=== PATIENT | male | born 1970 | race Caucasian/White ===

== ENCOUNTER 2016-09-29 08:46 | Emergency (ER) | payer MEDICARE, MEDICAID ==
[2016-09-29 09:01] VITALS: TEMP 97.8
--- NOTE | 2016-09-29 10:14 | ED.PDOC ---
History of Present Illness - General Chief Complaint: Cardiovascular Problem Stated Complaint: recent pacemaker placement, "pounding heart" Time Seen by Provider: 09/29/16 09:09 Source: patient Exam Limitations: no limitations - History of Present Illness Initial Comments: the patient is a 45-year-old male with a history of congestive heart failure and atrial fibrillation presenting to the ER approximately 6 hours after being awoken from sleep due to a feeling of his heart pounding very hard but not fast. He had a pacemaker placed for bradycardia approximately 3 weeks ago at [facility]. He is not having any real chest pain. No shortness of breath. No syncope. No fevers. He has not had this feeling before. He had the pacemaker placed by a Dr. Rios. He has done well since the placement up until now. The pounding is not present when he takes a deep breath but resumes when he exhales. The spasm is noted clinically visibly to his left precordium and upper abdomen with exhalation. It is easily palpated. Timing/Duration: 4-6 hours Severity: moderate Improving Factors: nothing Worsening Factors: nothing Associated Symptoms: denies symptoms Allergies/Adverse Reactions: Allergies Bee Venom Allergy (Verified 09/29/16 09:01) Coconut Oil Allergy (Verified 09/29/16 09:01) Home Medications: Ambulatory Orders Albuterol Sulfate Nebs [Proventil Nebs] 2.5 mg NEB Q6H PRN 02/12/16 Ipratropium/Albuterol [Duoneb] 3 ml NEB RTQID #100 vial 06/02/16 Furosemide [Lasix Tab] 40 mg PO DAILY 07/28/16 Potassium Chloride Microencaps [Klor-Con M20] 20 meq PO DAILY 07/28/16 Warfarin Sodium [Coumadin] 6 mg PO DAILY 07/28/16 Amoxicillin & Pot Clavulanate [Augmentin] 875 mg PO BID 09/29/16 Budes/Formoterol INH 160/4.5 [Symbicort Inhaler 160/4.5] 1 puff INH PRN Diltiazem HCl 90 mg PO BID 09/29/16 Lisinopril [Prinivil] 5 mg PO QAM 09/29/16 Metoprolol Succinate [Metoprolol Succinate ER] 200 mg PO DAILY 09/29/16 Spironolactone 25 mg PO DAILY 09/29/16 Warfarin Sodium [Coumadin] 12 mg PO DAILY 09/29/16 Review of Systems - Review of Systems Constitutional: States: no symptoms reported EENTM: States: no symptoms reported Respiratory: States: no symptoms reported Cardiology: States: palpitations Gastrointestinal/Abdominal: States: no symptoms reported Genitourinary: States: no symptoms reported Musculoskeletal: States: no symptoms reported Skin: States: no symptoms reported Neurological: States: no symptoms reported All other Systems: No Change from Baseline Past Medical History (General) - Patient Medical History Hx Seizures: No Hx Stroke: Yes Hx Dementia: No Hx Asthma: Yes Hx of COPD: Yes Hx Cardiac Disorders: Yes Hx Congestive Heart Failure: Yes Hx Pacemaker: No Hx Hypertension: Yes Hx Thyroid Disease: No Hx Diabetes: Yes Hx Gastroesophageal Reflux: No Hx Renal Disease: No Hx Cancer: No Hx of HIV: No Hx Hepatitis C: No Hx MRSA: No MRSA Source:: Wound Surgical History: appendectomy - Vaccination History Hx Tetanus, Diphtheria Vaccination: No Hx Influenza Vaccination: Yes Hx Pneumococcal Vaccination: Yes - Social History Hx Tobacco Use: No - quit one month ago Hx Chewing Tobacco Use: No Hx Alcohol Use: Yes Hx Substance Use: No Hx Substance Use Treatment: No Hx Depression: No Hx Physical Abuse: No Hx Emotional Abuse: No Hx Suspected Abuse: No - Activities of Daily Living Hospice Agency (if applicable):: None - Female History Patient is a Female of Child Bearing Age (10 -59 yrs old): No Patient : No Family Medical History - Family History Mother Family History: Unknown Physical Exam - Physical Exam General Appearance: Alert, No apparent distress Eye Exam: bilateral normal Ears, Nose, Throat: normal ENT inspection, normal pharynx Neck: non-tender, full range of motion, supple Respiratory: chest non-tender, lungs clear, normal breath sounds, no respiratory distress, no accessory muscle use, other - chest wall contraction is noted with history of present illness Cardiovascular/Chest: normal peripheral pulses, no edema, other - regular rate Peripheral Pulses: radial,right: 2+, radial,left: 2+, dorsalis pedis,right: 2+, dorsalis pedis,left: 2+ Gastrointestinal/Abdominal: non tender, soft Rectal Exam: deferred Back Exam: normal inspection, no CVA tenderness Extremity: normal range of motion, non-tender, normal inspection, no pedal edema , normal capillary refill Neurologic: alert, normal mood/affect, oriented x 3 Skin Exam: normal color Comments: Vital Signs - 24 hr 09/29/16 09/29/16 08:52 09:02 Temperature 97.8 F Pulse Rate [ 80 pulse ox] Respiratory 20 20 Rate Blood Pressure 156/90 [Left Arm] O2 Sat by Pulse 92 L Oximetry Progress - Progress Progress: 09/29/16 10:16 the patient is a 45-year-old male presenting with symptom of thumping in his chest starting at 2:30 AM abruptly. This is not chest pain or shortness of breath. Symptoms have not changed since onset. Due to the correlation with breathing as well as the placement of the leads on the x-ray I do believe that one of his ventricular leads has likely come into contact with the diaphragm likely upon exhaling only, at this time. I did attempt to contact his gas technician office, Dr Rios, but have not heard back from them yet at this time. The patient will be transferred back [facility] where he had the pacemaker placed for further evaluation and intervention as deemed necessary. He does appear stable at this time. Transfer for specialist care. - Results/Orders Results/Orders: Vital Signs - 24 hr 09/29/16 09/29/16 08:52 09:02 Temperature 97.8 F Pulse Rate [ 80 pulse ox] Respiratory 20 20 Rate Blood Pressure 156/90 [Left Arm] O2 Sat by Pulse 92 L Oximetry EKG shows a paced ventricular rhythm at a rate of approximately 80. Laboratory Tests 09/29/16 09:20 WBC 11.0 H RBC 4.67 L Hgb 14.0 Hct 43.5 MCV 93.1 MCH 29.9 MCHC 32.2 L RDW 15.7 H Plt Count 212 MPV 7.7 Absolute Neuts (auto) 7.40 H Absolute Lymphs (auto) 2.50 Absolute Monos (auto) 0.80 Absolute Eos (auto) 0.10 Absolute Basos (auto) 0.10 Neutrophils % 67.6 Lymphocytes % 22.9 Monocytes % 7.2 Eosinophils % 1.1 Basophils % 1.2 PT 15.4 H INR 1.380 PTT (SP) 33.9 Sodium 139 Potassium 4.1 Chloride 103 Carbon Dioxide 28 Anion Gap 12.1 BUN 23 H Creatinine 1.28 BUN/Creatinine Ratio 18.0 Random Glucose 102 Serum Osmolality 281.4 Calcium 8.9 Magnesium 1.9 Total Bilirubin 0.3 AST 22 ALT 23 Alkaline Phosphatase 79 Creatine Kinase 69 CK-MB (CK-2) 2.0 CK-MB (CK-2) % Not Reportable Troponin I < 0.02 B-Natriuretic Peptide 187.0 H Serum Total Protein 7.2 Albumin 3.5 Globulin 3.7 H Albumin/Globulin Ratio 0.9 L Departure - Departure Clinical Impression: Pacemaker complications Qualifiers: Encounter type: initial encounter Qualifier Code: (T82.9XXA) Unspecified complication of cardiac and vascular prosthetic device, implant and graft, initial encounter Disposition: Discharge to Home or Self Half-Way Medications: Ambulatory Orders Albuterol Sulfate Nebs [Proventil Nebs] 2.5 mg NEB Q6H PRN 02/12/16 Ipratropium/Albuterol [Duoneb] 3 ml NEB RTQID #100 vial 06/02/16 Furosemide [Lasix Tab] 40 mg PO DAILY 07/28/16 Potassium Chloride Microencaps [Klor-Con M20] 20 meq PO DAILY 07/28/16 Warfarin Sodium [Coumadin] 6 mg PO DAILY 07/28/16 Amoxicillin & Pot Clavulanate [Augmentin] 875 mg PO BID 09/29/16 Budes/Formoterol INH 160/4.5 [Symbicort Inhaler 160/4.5] 1 puff INH PRN Diltiazem HCl 90 mg PO BID 09/29/16 Lisinopril [Prinivil] 5 mg PO QAM 09/29/16 Metoprolol Succinate [Metoprolol Succinate ER] 200 mg PO DAILY 09/29/16 Spironolactone 25 mg PO DAILY 09/29/16 Warfarin Sodium [Coumadin] 12 mg PO DAILY 09/29/16 Transfer to Outside Facility - Transfer Information Accepting Provider:: dr sellers Accepting Facility: [facility] Reason for Transfer: required specialist not available
--- NOTE | 2016-09-29 10:48 | RAD ---
Study: Frontal and Lateral Views of the Chest. Indication: eval pacemaker leads Comparison: 07/28/2016. Impression: New multi lead cardiac pacemaker. Cardiomegaly with mild central vascular congestion interstitial edema which appears slightly improved compared to the prior. No pleural effusion or pneumothorax. Degenerative changes of the spine noted. Electronically signed by: Wilfred Gunn MD 09/29/2016 10:46
[2016-09-29 10:59] VITALS: BP 122/76; O2SAT 94
== END 2016-09-29 11:10 | disposition home or self-care (01) ==
LOC: ER 08:46
DX: T82.9XXA Unspecified complication of cardiac and vascular prosthetic device, implant and graft, initial encounter (principal); Z91.030 Bee allergy status; Z91.018 Allergy to other foods; I11.0 Hypertensive heart disease with heart failure; I50.9 Heart failure, unspecified; Z86.73 Personal history of transient ischemic attack (TIA), and cerebral infarction without residual deficits; E11.9 Type 2 diabetes mellitus without complications; Z87.891 Personal history of nicotine dependence; Z79.899 Other long term (current) drug therapy; Z79.01 Long term (current) use of anticoagulants

== ENCOUNTER → 2016-10-04 | Outpatient (CLI) | payer MEDICARE, MEDICAID | LOC: NC 13:08 | DX: I48.91 Unspecified atrial fibrillation (principal) ==

== ENCOUNTER 2016-10-05 15:17 | Emergency (ER) | payer MEDICARE, MEDICAID ==
[2016-10-05 15:36] VITALS: TEMP 98.2
--- NOTE | 2016-10-05 16:27 | ED.PDOC ---
History of Present Illness - General Chief Complaint: Cardiovascular Problem Stated Complaint: arm twitching from pacemaker Time Seen by Provider: 10/05/16 15:34 Source: patient, RN notes reviewed, Vital Signs reviewed Exam Limitations: no limitations - History of Present Illness Initial Comments: Patient reports that starting about lunch time his pacemaker started shocking him with each heart beat. He feels it mostly in his left arm. No chest pain or SOB. Timing/Duration: 1-3 hours Severity: moderate Location: shoulder Activities at Onset: none Prior Chest Pain/Cardiac Workup: other - Pacemaker placed in Aug. Improving Factors: nothing Worsening Factors: nothing Nitro Today/Relief: no nitro taken today Aspirin Treatment Today: no aspirin today Associated Symptoms: denies symptoms Allergies/Adverse Reactions: Allergies Bee Venom Allergy (Verified 09/29/16 09:01) Coconut Oil Allergy (Verified 09/29/16 09:01) Home Medications: Ambulatory Orders Ipratropium/Albuterol [Duoneb] 3 ml NEB RTQID #100 vial 06/02/16 Furosemide [Lasix Tab] 40 mg PO BID 07/28/16 Potassium Chloride Microencaps [Klor-Con M20] 20 meq PO DAILY 07/28/16 Diltiazem HCl 90 mg PO BID 09/29/16 Lisinopril [Prinivil] 5 mg PO QAM 09/29/16 Spironolactone 25 mg PO DAILY 09/29/16 Warfarin Sodium [Coumadin] 6 mg PO DAILY 09/29/16 Digoxin 125 mcg PO DAILY 10/05/16 Metoprolol Tartrate 100 mg PO BID 10/05/16 Warfarin Sodium [Coumadin] 12 mg PO DAILY 10/05/16 Review of Systems - Review of Systems Constitutional: States: no symptoms reported EENTM: States: no symptoms reported Respiratory: States: no symptoms reported Cardiology: States: see HPI Gastrointestinal/Abdominal: States: no symptoms reported Musculoskeletal: States: no symptoms reported Skin: States: no symptoms reported Neurological: States: no symptoms reported Endocrine: States: no symptoms reported Past Medical History (General) - Patient Medical History Hx Seizures: No Hx Stroke: Yes Hx Dementia: No Hx Asthma: Yes Hx of COPD: Yes Hx Cardiac Disorders: Yes Hx Congestive Heart Failure: Yes Hx Pacemaker: Yes Hx Hypertension: Yes Hx Thyroid Disease: No Hx Diabetes: Yes Hx Gastroesophageal Reflux: No Hx Renal Disease: No Hx Cancer: No Hx of HIV: No Hx Hepatitis C: No Hx MRSA: No MRSA Source:: Wound - Vaccination History Hx Tetanus, Diphtheria Vaccination: No Hx Influenza Vaccination: Yes Hx Pneumococcal Vaccination: Yes - Social History Hx Tobacco Use: No - quit one month ago Hx Chewing Tobacco Use: No Hx Alcohol Use: Yes Hx Substance Use: No Hx Substance Use Treatment: No Hx Depression: No Hx Physical Abuse: No Hx Emotional Abuse: No Hx Suspected Abuse: No - Female History Patient : No Family Medical History - Family History Mother Family History: Unknown Physical Exam - Physical Exam General Appearance: Alert, No apparent distress, Unkempt Respiratory: lungs clear, normal breath sounds, no respiratory distress, no accessory muscle use Cardiovascular/Chest: regular rate, rhythm, no gallop, no murmur, other - Can see upper body jerk with each heart beat due to the eleectrical shock. Extremity: normal range of motion, non-tender, normal inspection Neurologic: no motor/sensory deficits, alert, normal mood/affect, oriented x 3 Skin Exam: normal color, warm/dry Progress - Progress Progress: 10/05/16 16:[address] Rios's MA who will text him and have him call me back. 10/05/16 16:[address] Hollingsworth. He checked the patients pacemaker on the computer and feels he is not being shocked but that the amplitude of each shock is too strong. He is going to see if a [employer] rep can come here to the ER and down regulate the pacemaker. Advised patient. Will wait for [employer]. 10/05/16 17:45 Spoke with [employer] rep - Tani Barnett, he should be here in approx 2 hours. 10/05/16 20:43 [employer] medical sales representative has arrived and is with patient. 10/05/16 21:[address] Aquino one of his leads of his pacemaker has become dislodged. HE needs to be transfered to [facility]. Admit to hospitalist, to inpatient room for another procedure on his pacemaker. - EKG/XRAY/CT EKG: Unchanged from 09/29/16 Comments: Ventricular pace maker Departure - Departure Clinical Impression: Pacemaker complications Disposition: Transfer to Hospital Condition: Fair Departure Forms: ED Discharge - Pt. Copy, Patient Portal Self Enrollment Home Medications: Ambulatory Orders Ipratropium/Albuterol [Duoneb] 3 ml NEB RTQID #100 vial 06/02/16 Furosemide [Lasix Tab] 40 mg PO BID 07/28/16 Potassium Chloride Microencaps [Klor-Con M20] 20 meq PO DAILY 07/28/16 Diltiazem HCl 90 mg PO BID 09/29/16 Lisinopril [Prinivil] 5 mg PO QAM 09/29/16 Spironolactone 25 mg PO DAILY 09/29/16 Warfarin Sodium [Coumadin] 6 mg PO DAILY 09/29/16 Digoxin 125 mcg PO DAILY 10/05/16 Metoprolol Tartrate 100 mg PO BID 10/05/16 Warfarin Sodium [Coumadin] 12 mg PO DAILY 10/05/16 Transfer to Outside Facility - Transfer Information Accepting Provider:: Dr. Cruz Accepting Facility: [place] Reason for Transfer: required specialist not available - Needs procedure to replace dislodged L ventricular lead
[2016-10-05 21:59] VITALS: BP 148/88; O2SAT 92
== END 2016-10-05 21:35 | disposition short-term general hospital (02) ==
LOC: ER 15:17
DX: T82.199A Other mechanical complication of unspecified cardiac device, initial encounter (principal); J44.9 Chronic obstructive pulmonary disease, unspecified; I11.0 Hypertensive heart disease with heart failure; I50.9 Heart failure, unspecified; E11.9 Type 2 diabetes mellitus without complications; Z86.73 Personal history of transient ischemic attack (TIA), and cerebral infarction without residual deficits; Z79.01 Long term (current) use of anticoagulants; Z79.899 Other long term (current) drug therapy; Z87.891 Personal history of nicotine dependence; Z91.030 Bee allergy status; Z91.018 Allergy to other foods

== ENCOUNTER → 2016-10-15 | Outpatient (CLI) | payer MEDICARE, MEDICAID | LOC: NC 18:13 | DX: I48.91 Unspecified atrial fibrillation (principal) ==

== ENCOUNTER → 2016-11-24 | Outpatient (CLI) | payer MEDICARE, MEDICAID | END | disposition home or self-care (01) | LOC: YCFC.O 14:32 | DX: I48.91 Unspecified atrial fibrillation (principal); E11.22 Type 2 diabetes mellitus with diabetic chronic kidney disease ==

== ENCOUNTER → 2016-12-08 | Outpatient (CLI) | payer MEDICARE, MEDICAID | END | disposition home or self-care (01) | LOC: NC 17:01 | DX: I48.91 Unspecified atrial fibrillation (principal) ==

== ENCOUNTER → 2016-12-15 | Outpatient (CLI) | payer MEDICARE, MEDICAID | END | disposition home or self-care (01) | LOC: NC 11:32 | DX: I48.91 Unspecified atrial fibrillation (principal) ==

== ENCOUNTER 2016-12-18 20:28 | Emergency (ER) | payer MEDICARE, MEDICAID ==
--- NOTE | 2016-12-18 21:53 | RAD ---
Procedure: XR ABDOMEN 2 VIEWS SUPINE ERECT Exam Date: 12/18/2016 Ordering Provider: Shadia Bowens Clinical Indication: left upper quadrant pain Comparison: 09/29/2016 Findings: Upright chest x-ray: Left subclavian AICD with leads in appropriate position. Cardiac size is enlarged. Pulmonary vasculature is normal. Mediastinal and aortic contour normal. There is no consolidation or effusion. Flat and upright abdomen: There is no small or large bowel distention. There is no pneumoperitoneum. There are no suspicious calcifications. Pelvic phleboliths. There is no acute skeletal abnormality. Impression: 1. No acute radiographic abnormalities in the chest, abdomen or pelvis. 2. Cardiomegaly. Electronically signed by: Everton Obrien MD 12/18/2016 9:52 PM CDT
[2016-12-18] MEDS ORDERED: SIMETHICONE 80 MG TAB PO PRN (22:44)
--- NOTE | 2016-12-18 22:52 | ED.PDOC ---
History of Present Illness - General Chief Complaint: Abdominal Pain Stated Complaint: Epigastric Pain onset 1 hr ago Time Seen by Provider: 12/18/16 20:54 Source: patient, RN notes reviewed, Vital Signs reviewed Exam Limitations: no limitations - History of Present Illness Initial Comments: Patient is a 46 y/o male with a history of afib with a pacemaker. He reports that two hours prior to coming into the ED via EMS, he started having upper abdominal pain. The pain is primarily in the right side and radiates to the back. It is a sharp pain, a 10/10. He vomited three times [employer]. He has had no diarrhea. Timing/Duration: 4-6 hours Severity: severe Improving Factors: nothing Worsening Factors: nothing Associated Symptoms: nausea/vomiting Allergies/Adverse Reactions: Allergies Bee Venom Allergy (Verified 09/29/16 09:01) Coconut Oil Allergy (Verified 09/29/16 09:01) Home Medications: Ambulatory Orders Furosemide [Lasix Tab] 40 mg PO BID 07/28/16 Lisinopril [Prinivil] 10 mg PO QAM 09/29/16 Warfarin Sodium [Coumadin] 10 mg PO DAILY 10/05/16 Aspirin [Aspirin Adult Low Dose] 81 mg PO DAILY 12/18/16 Metoprolol Succinate [Metoprolol Succinate ER] 25 mg PO BID 12/18/16 Promethazine Tab [Phenergan Tablet] 25 mg PO Q8H PRN #10 tab 12/19/16 Simethicone [Phazyme Maximum Strength] 250 mg PO BID PRN #14 cap 12/19/16 Review of Systems - Review of Systems Constitutional: States: no symptoms reported EENTM: States: no symptoms reported Respiratory: States: short of breath Cardiology: States: no symptoms reported Gastrointestinal/Abdominal: States: abdominal pain, nausea, vomiting Genitourinary: States: no symptoms reported Musculoskeletal: States: back pain Skin: States: rash Neurological: States: no symptoms reported Endocrine: States: no symptoms reported Hematologic/Lymphatic: States: no symptoms reported All other Systems: Reviewed and Negative Past Medical History (General) - Patient Medical History Hx Seizures: No Hx Stroke: No Hx Dementia: No Hx Asthma: Yes Hx of COPD: Yes Hx Cardiac Disorders: Yes Hx Congestive Heart Failure: Yes Hx Pacemaker: Yes Hx Hypertension: Yes Hx Thyroid Disease: No Hx Diabetes: No Hx Gastroesophageal Reflux: No Hx Renal Disease: No Hx Cancer: No Hx of HIV: No Hx Hepatitis C: No Hx MRSA: No MRSA Source:: Wound Surgical History: appendectomy, pacemaker - Vaccination History Hx Tetanus, Diphtheria Vaccination: Yes Hx Influenza Vaccination: Yes Hx Pneumococcal Vaccination: Yes Immunizations Up to Date: Yes - Social History Hx Tobacco Use: No - Quit 08/04 Hx Chewing Tobacco Use: No Hx Alcohol Use: No Hx Substance Use: No Hx Substance Use Treatment: No Hx Depression: No Feels Threatened In Home Enviroment: No Feels Threatened In a Relationship: No Hx Physical Abuse: No Hx Emotional Abuse: No Hx Suspected Abuse: No - Female History Patient : No Family Medical History - Family History Mother Family History: Unknown Physical Exam - Physical Exam General Appearance: Alert, Obvious distress, Obese, Unkempt Eye Exam: bilateral normal Ears, Nose, Throat: hearing grossly normal, normal ENT inspection Respiratory: lungs clear, normal breath sounds, no respiratory distress, no accessory muscle use Cardiovascular/Chest: regular rate, rhythm, no edema, no gallop, no murmur Gastrointestinal/Abdominal: normal bowel sounds, soft, tenderness - Primarily in the LUQ, although + Wolfe's. Back Exam: no CVA tenderness Extremity: non-tender, normal inspection Neurologic: alert, normal mood/affect, oriented x 3 Skin Exam: normal color, rash - to left upper arm Progress - Progress Progress: 12/19/16 00:44 Patient's pain decreased significantly after receiving simethicone (to a 6/10). Although I initially considered a CT of the abdomen, because our CT machine was down, I elected to discharge Patient without one, especially since his pain was primarily on the left side and it improved in the ED. I gave him instructions to return if his pain worsened again. I will give him a prescription of simethicone to take if this happens again in the future. - Results/Orders Results/Orders: 12/18/16 12/18/16 12/18/16 20:30 21:29 22:12 Temperature 97.9 F Pulse Rate [L 82 76 81 Arm] Respiratory 22 20 18 Rate Blood Pressure 145/79 126/78 131/92 [L Arm] O2 Sat by Pulse 94 L 96 93 L Oximetry 12/18/16 20:55 EKG Assessment ONCE 12/18/16 21:00 EKG STAT EKG STAT 12/18/16 22:42 Hold Metformin x 48Hrs [id number] Abdomen/Pelvis w/Contrast [CT] Stat 12/18/16 22:44 Simethicone [Mylanta Gas] 160 mg PO PCHS PRN Laboratory Results WBC 12.0 K/mm3 (4.8-10.8) H 12/18/16 20:50 RBC 5.06 M/mm3 (4.70-6.10) 12/18/16 20:50 Hgb 15.4 gm/dL (14.0-18.0) 12/18/16 20:50 Hct 46.9 % (42.0-52.0) 12/18/16 20:50 MCV 92.7 fl (80.0-94.0) 12/18/16 20:50 MCH 30.4 pg (27.0-31.0) 12/18/16 20:50 MCHC 32.8 g/dL (33.0-37.0) L 12/18/16 20:50 RDW 15.5 % (11.5-14.5) H 12/18/16 20:50 Plt Count 244 K/mm3 (130-400) 12/18/16 20:50 MPV 8.7 fl (7.40-10.4) 12/18/16 20:50 Absolute Neuts (auto) 8.70 K/uL (1.8-6.8) H 12/18/16 20:50 Absolute Lymphs (auto) 2.20 K/uL (1.0-3.4) 12/18/16 20:50 Absolute Monos (auto) 0.80 K/uL (0.2-0.8) 12/18/16 20:50 Absolute Eos (auto) 0.10 K/uL (0.0-0.4) 12/18/16 20:50 Absolute Basos (auto) 0.10 K/uL (0.0-0.1) 12/18/16 20:50 Neutrophils % 73.0 % (42.0-78.0) 12/18/16 20:50 Lymphocytes % 18.5 % (20.0-50.0) L 12/18/16 20:50 Monocytes % 6.4 % (2.0-9.0) 12/18/16 20:50 Eosinophils % 1.0 % (1.0-5.0) 12/18/16 20:50 Basophils % 1.1 % (0.0-2.0) 12/18/16 20:50 PT 19.1 SECONDS (9.4-12.5) H 12/18/16 20:50 INR 1.700 12/18/16 20:50 PTT (SP) 38.2 SECONDS (25.1-36.5) H 12/18/16 20:50 Sodium 139 mmol/L (135-145) 12/18/16 20:50 Potassium 3.5 mmol/L (3.6-5.0) L 12/18/16 20:50 Chloride 99 mmol/L (101-111) L 12/18/16 20:50 Carbon Dioxide 31 mmol/L (21-31) 12/18/16 20:50 Anion Gap 12.5 (12-18) 12/18/16 20:50 BUN 24 mg/dL (7-18) H 12/18/16 20:50 Creatinine 1.24 mg/dL (0.6-1.3) 12/18/16 20:50 BUN/Creatinine Ratio 19.4 (10-20) 12/18/16 20:50 Random Glucose 145 mg/dL (70-105) H 12/18/16 20:50 Serum Osmolality 284.2 mOsm/L (275-295) 12/18/16 20:50 Calcium 8.7 mg/dL (8.4-10.2) 12/18/16 20:50 Magnesium 2.0 mg/dL (1.8-2.5) 12/18/16 20:50 Total Bilirubin 0.3 mg/dL (0.2-1.0) 12/18/16 20:50 Direct Bilirubin < 0.1 mg/dL (0-0.2) 12/18/16 20:50 Indirect Bilirubin 0.2 mg/dL (0.2-0.8) 12/18/16 20:50 AST 22 IU/L (10-42) 12/18/16 20:50 ALT 19 IU/L (10-60) 12/18/16 20:50 Alkaline Phosphatase 87 IU/L (42-121) 12/18/16 20:50 Creatine Kinase 129 IU/L (38-174) 12/18/16 20:50 CK-MB (CK-2) 2.4 ng/mL (0.0-4.4) 12/18/16 20:50 CK-MB (CK-2) % Not Reportable 12/18/16 20:50 Troponin I < 0.02 ng/mL (0.01-0.05) 12/18/16 20:50 B-Natriuretic Peptide 148.0 pg/ml (0-100) H 12/18/16 20:50 Serum Total Protein 7.4 gm/dL (6.4-8.2) 12/18/16 20:50 Albumin 3.7 g/dl (3.2-5.5) 12/18/16 20:50 Globulin Cancelled 12/18/16 20:50 Albumin/Globulin Ratio Cancelled 12/18/16 20:50 Lipase 70 U/L (22-51) H 12/18/16 20:50 Urine Color Yellow (Yellow) 12/18/16 22:20 Urine Appearance Clear (Clear) 12/18/16 22:20 Urine pH 5.5 (4.5-7.8) 12/18/16 22:20 Ur Specific [place] 1.020 (1.005-1.030) 12/18/16 22:20 Urine Protein 100 mg/dL H 12/18/16 22:20 Urine Glucose (UA) Negative mg/dL (Negative) 12/18/16 22:20 Urine Ketones Negative mg/dL (NEGATIVE) 12/18/16 22:20 Urine Blood Trace-lysed (Negative) H 12/18/16 22:20 Urine Nitrite Negative 12/18/16 22:20 Urine Bilirubin Negative (NEGATIVE) 12/18/16 22:20 Urine Urobilinogen 0.2 mg/dL (0.2-1.0) 12/18/16 22:20 Ur Leukocyte Esterase Negative (Negative) 12/18/16 22:20 Urine RBC 0-1 /hpf 12/18/16 22:20 Urine WBC 0-1 /hpf 12/18/16 22:20 Ur Epithelial Cells 1-3 /hpf 12/18/16 22:20 Urine Bacteria Rare 12/18/16 22:20 - EKG/XRAY/CT Comments: Electronic ventricular pacemaker, rate 82 bpm XRAY: abdomen Xray Comments: No acute abnormalities, cardiomegaly CT Ordered: No CT Interpretation Call Back: No Departure - Departure Clinical Impression: Abdominal pain Qualifiers: Abdominal location: left upper quadrant Qualifier Code: (R10.12) Left upper quadrant pain Time of Disposition: 00:47 Disposition: Discharge to Home or Self Care Condition: Fair Departure Forms: ED Discharge - Pt. Copy, Patient Portal Self Enrollment Instructions: DI for Abdominal Pain-Adult Diet: bland diet Referrals: Zahra Elmore NP [Primary Care Provider] - 1-2 Weeks Prescriptions: Simethicone [Phazyme Maximum Strength] 250 mg PO BID PRN #14 cap PRN Reason: Gas Or Gas Pain Promethazine Tab [Phenergan Tablet] 25 mg PO Q8H PRN #10 tab PRN Reason: Nausea/Vomiting Home Medications: Ambulatory Orders Furosemide [Lasix Tab] 40 mg PO BID 07/28/16 Lisinopril [Prinivil] 10 mg PO QAM 09/29/16 Warfarin Sodium [Coumadin] 10 mg PO DAILY 10/05/16 Aspirin [Aspirin Adult Low Dose] 81 mg PO DAILY 12/18/16 Metoprolol Succinate [Metoprolol Succinate ER] 25 mg PO BID 12/18/16 Promethazine Tab [Phenergan Tablet] 25 mg PO Q8H PRN #10 tab 12/19/16 Simethicone [Phazyme Maximum Strength] 250 mg PO BID PRN #14 cap 12/19/16 Additional Instructions: [place] diet. Follow up if symptoms return. Stay well-hydrated.
[2016-12-19 01:07] VITALS: BP 151/71; TEMP 98.6; O2SAT 91
== END 2016-12-19 00:50 | disposition home or self-care (01) ==
LOC: ER 20:28
DX: R10.12 Left upper quadrant pain (principal); I11.0 Hypertensive heart disease with heart failure; I50.9 Heart failure, unspecified; J44.9 Chronic obstructive pulmonary disease, unspecified; Z95.0 Presence of cardiac pacemaker; Z91.030 Bee allergy status; Z91.018 Allergy to other foods; Z79.82 Long term (current) use of aspirin; Z79.01 Long term (current) use of anticoagulants; Z87.891 Personal history of nicotine dependence

== ENCOUNTER → 2016-12-22 | Outpatient (CLI) | payer MEDICARE, MEDICAID | END | disposition home or self-care (01) | LOC: YCFC.O 16:46 | DX: I48.91 Unspecified atrial fibrillation (principal) ==

== ENCOUNTER 2016-12-31 11:49 | Emergency (ER) | payer MEDICARE, MEDICAID ==
[2016-12-31 12:08] VITALS: TEMP 98.2
--- NOTE | 2016-12-31 12:50 | ED.PDOC ---
History of Present Illness - General Chief Complaint: General Stated Complaint: elevated blood pressure Time Seen by Provider: 12/31/16 12:49 Source: patient, RN notes reviewed, Vital Signs reviewed Exam Limitations: no limitations - History of Present Illness Initial Comments: Mr. Ananth Gary 46 y/o male with Afib ,chf cad, was sent by his home health nurse to er after a nurse visit today blood pressure was 184/104 but on arrival at er bp taken 140/61 presently denies headache ,chest pain,SOB. Timing/Duration: 1-3 hours Severity: mild Improving Factors: nothing Worsening Factors: nothing Associated Symptoms: denies symptoms Allergies/Adverse Reactions: Allergies Bee Venom Allergy (Verified 09/29/16 09:01) Coconut Oil Allergy (Verified 09/29/16 09:01) Home Medications: Ambulatory Orders Furosemide [Lasix Tab] 40 mg PO BID 07/28/16 Warfarin Sodium [Coumadin] 10 mg PO DAILY 10/05/16 Aspirin [Aspirin Adult Low Dose] 81 mg PO DAILY 12/18/16 Metoprolol Succinate [Metoprolol Succinate ER] 25 mg PO BID 12/18/16 Sacubitril-Valsartan [Entresto 24-26 mg] 1 tab PO BID 12/31/16 Warfarin Sodium 5 mg PO MOWEFR 12/31/16 cloNIDine HCL [Catapres] 0.1 mg PO TID PRN 12/31/16 Review of Systems - Review of Systems Constitutional: States: no symptoms reported EENTM: States: no symptoms reported Respiratory: States: no symptoms reported Cardiology: States: no symptoms reported Gastrointestinal/Abdominal: States: no symptoms reported Genitourinary: States: no symptoms reported Musculoskeletal: States: no symptoms reported Skin: States: no symptoms reported Neurological: States: no symptoms reported Endocrine: States: no symptoms reported Hematologic/Lymphatic: States: no symptoms reported Past Medical History (General) - Patient Medical History Hx Seizures: No Hx Stroke: No Hx Dementia: No Hx Asthma: Yes Hx of COPD: Yes Hx Cardiac Disorders: Yes Hx Congestive Heart Failure: Yes Hx Pacemaker: Yes Hx Hypertension: Yes Hx Thyroid Disease: No Hx Diabetes: No Hx Gastroesophageal Reflux: No Hx Renal Disease: No Hx Cancer: No Hx of HIV: No Hx Hepatitis C: No Hx MRSA: No Hx Other PMH: Yes - padmini on cpap MRSA Source:: Wound Surgical History: appendectomy, pacemaker, other - eye - Vaccination History Hx Tetanus, Diphtheria Vaccination: Yes Hx Influenza Vaccination: Yes - 2016 Hx Pneumococcal Vaccination: Yes - 2016 - Social History Hx Tobacco Use: Yes Hx Chewing Tobacco Use: No Hx Alcohol Use: No Hx Substance Use: No Hx Substance Use Treatment: No Hx Depression: No Hx Physical Abuse: No Hx Emotional Abuse: No Hx Suspected Abuse: No - Activities of Daily Living Patient Lives Alone: No - girlfriend - Female History Patient : No Family Medical History - Family History Mother Family History: No Known Living Status: Still Living Hx Cardiac Disease: Yes - parents Hx Family Cancer: Yes - mom Hx Family;Other: copd Physical Exam - Physical Exam General Appearance: Alert, No apparent distress Eye Exam: bilateral normal Ears, Nose, Throat: hearing grossly normal, normal ENT inspection, normal pharynx Neck: non-tender, full range of motion, supple Respiratory: chest non-tender, lungs clear, normal breath sounds, no respiratory distress, no accessory muscle use Cardiovascular/Chest: normal peripheral pulses, regular rate, rhythm, no edema, no gallop, no JVD, no murmur Peripheral Pulses: radial,right: 2+, radial,left: 2+ Gastrointestinal/Abdominal: normal bowel sounds, non tender, soft, no organomegaly, other - obese Back Exam: normal inspection, no CVA tenderness, no vertebral tenderness Extremity: normal range of motion, non-tender, normal inspection, no pedal edema , no calf tenderness Neurologic: no motor/sensory deficits, alert, normal mood/affect, oriented x 3 Skin Exam: normal color, warm/dry, cyanosis Lymphatic: no adenopathy Departure - Departure Clinical Impression: Hypertension, benign, History of chronic atrial fibrillation, group home current use of anticoagulant therapy Time of Disposition: 13:23 Disposition: Discharge to Home or Self Care Condition: Fair Departure Forms: ED Discharge - Pt. Copy, Patient Portal Self Enrollment Instructions: Why It Is Important to Quit Smoking If You Have Heart Failure, Reasons to Quit Smoking, Tips to Help You Stop Smoking, Serious Ways to Stop Smoking Diet: resume usual diet, low fat, low cholesterol, low salt diet Referrals: Zahra Elmore NP [Primary Care Provider] - 1-2 Weeks Home Medications: Ambulatory Orders Furosemide [Lasix Tab] 40 mg PO BID 07/28/16 Warfarin Sodium [Coumadin] 10 mg PO DAILY 10/05/16 Aspirin [Aspirin Adult Low Dose] 81 mg PO DAILY 12/18/16 Metoprolol Succinate [Metoprolol Succinate ER] 25 mg PO BID 12/18/16 Sacubitril-Valsartan [Entresto 24-26 mg] 1 tab PO BID 12/31/16 Warfarin Sodium 5 mg PO MOWEFR 12/31/16 cloNIDine HCL [Catapres] 0.1 mg PO TID PRN 12/31/16 Additional Instructions: Continue with current medication;Return to emergency room as needed;Follow up with primary md call for appointment
[2016-12-31 13:41] VITALS: BP 130/81; O2SAT 94
== END 2016-12-31 13:30 | disposition home or self-care (01) ==
LOC: ER 11:49
DX: I11.0 Hypertensive heart disease with heart failure (principal); I50.9 Heart failure, unspecified; I48.2 Chronic atrial fibrillation; G47.33 Obstructive sleep apnea (adult) (pediatric); J44.9 Chronic obstructive pulmonary disease, unspecified; Z95.0 Presence of cardiac pacemaker; Z79.899 Other long term (current) drug therapy; Z91.030 Bee allergy status; Z91.018 Allergy to other foods; Z79.82 Long term (current) use of aspirin; Z79.01 Long term (current) use of anticoagulants

== ENCOUNTER → 2016-12-31 | Outpatient (CLI) | payer MEDICARE, MEDICAID | END | disposition home or self-care (01) | LOC: LAB.O 10:59 | PROVIDERS: ATTEND Nurse Practitioner Family | DX: I48.2 Chronic atrial fibrillation (principal); I13.11 Hypertensive heart and chronic kidney disease without heart failure, with stage 5 chronic kidney disease, or end stage renal disease; E11.22 Type 2 diabetes mellitus with diabetic chronic kidney disease ==

== ENCOUNTER → 2017-01-11 | Outpatient (CLI) | payer MEDICARE, MEDICAID | END | disposition home or self-care (01) | LOC: NC 12:05 | PROVIDERS: ATTEND Nurse Practitioner Family | DX: I48.91 Unspecified atrial fibrillation (principal) ==

== ENCOUNTER 2017-01-27 15:05 | Emergency (ER) | payer MEDICARE, MEDICAID ==
[2017-01-27 15:22] VITALS: TEMP 99.1
--- NOTE | 2017-01-27 15:47 | ED.PDOC ---
History of Present Illness - General Chief Complaint: Respiratory Problem Stated Complaint: pt reports elevated BP Time Seen by Provider: 01/27/17 15:39 Source: patient, RN notes reviewed, Vital Signs reviewed Exam Limitations: no limitations - History of Present Illness Initial Comments: Patient came in because his BP at home was elevated to 151/115 despite taking his medications. Also reports the past 2 days he just has not been feeling well. More fatigue and lack of energy. He has been having to use his nebulizer more, 7-8X/day due to tightness in his chest. Timing/Duration: 24 hours Severity: moderate Improving Factors: medication Worsening Factors: nothing Associated Symptoms: malaise Allergies/Adverse Reactions: Allergies Bee Venom Allergy (Verified 01/27/17 15:41) Coconut Oil Allergy (Verified 01/27/17 15:41) Home Medications: Ambulatory Orders Furosemide Tab [Lasix Tab] 40 mg PO BID 07/28/16 Warfarin Sodium [Coumadin] 10 mg PO SUTUTHSA 10/05/16 Metoprolol Succinate [Metoprolol Succinate ER] 25 mg PO BID 12/18/16 Sacubitril-Valsartan [Entresto 24-26 mg] 1 tab PO BID 12/31/16 Warfarin Sodium 5 mg PO MOWEFR 12/31/16 cloNIDine HCL [Catapres] 0.1 mg PO TID PRN 12/31/16 Review of Systems - Review of Systems Constitutional: States: malaise, weakness. Denies: chills, fever EENTM: States: no symptoms reported Respiratory: States: short of breath, other - chest tightness. Denies: cough Cardiology: Denies: chest pain, palpitations, syncope Gastrointestinal/Abdominal: States: no symptoms reported. Denies: abdominal pain, diarrhea, nausea, vomiting Musculoskeletal: States: no symptoms reported Skin: States: no symptoms reported Neurological: States: no symptoms reported. Denies: headache, numbness, paresthesia Endocrine: States: no symptoms reported Past Medical History (General) - Patient Medical History Hx Seizures: No Hx Stroke: No Hx Dementia: No Hx Asthma: Yes Hx of COPD: Yes Hx Cardiac Disorders: Yes Hx Congestive Heart Failure: Yes Hx Pacemaker: Yes Hx Hypertension: Yes Hx Thyroid Disease: No Hx Diabetes: No Hx Gastroesophageal Reflux: No Hx Renal Disease: No Hx Cancer: No Hx of HIV: No Hx Hepatitis C: No Hx MRSA: No MRSA Source:: Wound Surgical History: pacemaker - Vaccination History Hx Tetanus, Diphtheria Vaccination: Yes Hx Influenza Vaccination: Yes - 2016 Hx Pneumococcal Vaccination: Yes - 2016 - Social History Hx Tobacco Use: Yes Hx Chewing Tobacco Use: No Hx Alcohol Use: No Hx Substance Use: No Hx Substance Use Treatment: No Hx Depression: No Hx Physical Abuse: No Hx Emotional Abuse: No Hx Suspected Abuse: No - Female History Patient : No Family Medical History - Family History Mother Family History: No Known Living Status: Still Living Hx Cardiac Disease: Yes - parents Hx Family Cancer: Yes - mom Hx Family;Other: copd Physical Exam - Physical Exam General Appearance: Alert, Comfortable, No apparent distress, Well Developed, Well Groomed, Well Hydrated, Well Nourished Ears, Nose, Throat: hearing grossly normal Neck: non-tender, full range of motion, supple, normal inspection Respiratory: chest non-tender, lungs clear, normal breath sounds, no respiratory distress, no accessory muscle use Cardiovascular/Chest: regular rate, rhythm, no gallop, no murmur Gastrointestinal/Abdominal: normal bowel sounds, non tender, soft Extremity: normal range of motion, non-tender Neurologic: alert, normal mood/affect, oriented x 3 Skin Exam: normal color, warm/dry Progress - Progress Progress: 01/27/17 15:49 ? if chest tightness and malaise is cardiac vs Respiratory. Will initiate cardiac workup. 01/27/17 18:55 Second set of cardiac enzymes are normal. Patients blood pressure has been normal for the time he was here. No symptoms. Will d/c home and have him follow up with his PCP. - Results/Orders Results/Orders: Vital Signs - 24 hr 01/27/17 01/27/17 01/27/17 15:20 16:25 17:30 Temperature 99.1 F Pulse Rate [ 86 82 80 Left Radial] Respiratory 24 24 24 Rate Blood Pressure 136/85 134/78 120/74 [Left Arm] O2 Sat by Pulse 89 L 92 L 93 L Oximetry Laboratory Tests 01/27/17 01/27/17 01/27/17 16:00 16:00 16:00 WBC 9.8 RBC 5.22 Hgb 15.8 Hct 48.2 MCV 92.2 MCH 30.2 MCHC 32.8 L RDW 15.1 H Plt Count 193 MPV 8.3 Absolute Neuts (auto) 7.00 H Absolute Lymphs (auto) 2.20 Absolute Monos (auto) 0.50 Absolute Eos (auto) 0.10 Absolute Basos (auto) 0.10 Neutrophils % 71.4 Lymphocytes % 22.0 Monocytes % 4.7 Eosinophils % 0.9 L Basophils % 1.0 Sodium 144 Potassium 3.4 L Chloride 106 Carbon Dioxide 31 Anion Gap 10.4 L BUN 18 Creatinine 1.30 BUN/Creatinine Ratio 13.8 Random Glucose 134 H Serum Osmolality 290.7 Calcium 8.8 Total Bilirubin 0.6 AST 21 ALT 21 Alkaline Phosphatase 80 Creatine Kinase 166 CK-MB (CK-2) 2.0 CK-MB (CK-2) % Not Reportable Troponin I 0.02 B-Natriuretic Peptide 140.0 H Serum Total Protein 7.3 Albumin 3.5 Globulin 3.8 H Albumin/Globulin Ratio 0.9 L 01/27/17 18:05 WBC RBC Hgb Hct MCV MCH MCHC RDW Plt Count MPV Absolute Neuts (auto) Absolute Lymphs (auto) Absolute Monos (auto) Absolute Eos (auto) Absolute Basos (auto) Neutrophils % Lymphocytes % Monocytes % Eosinophils % Basophils % Sodium Potassium Chloride Carbon Dioxide Anion Gap BUN Creatinine BUN/Creatinine Ratio Random Glucose Serum Osmolality Calcium Total Bilirubin AST ALT Alkaline Phosphatase Creatine Kinase 167 CK-MB (CK-2) 1.9 CK-MB (CK-2) % Not Reportable Troponin I 0.02 B-Natriuretic Peptide Serum Total Protein Albumin Globulin Albumin/Globulin Ratio - EKG/XRAY/CT Comments: Elevtronically paced XRAY: chest - Mild increase in central congestion o/w unchanged from Sep 2016 Departure - Departure Clinical Impression: Hypertension Qualifiers: Hypertension type: essential hypertension Qualified Code(s): I10 - Essential ( primary) hypertension COPD (chronic obstructive pulmonary disease) Qualifiers: COPD type: unspecified COPD Qualified Code(s): J44.9 - Chronic obstructive pulmonary disease, unspecified Time of Disposition: 18:56 Disposition: Discharge to Home or Self Care Condition: Good Departure Forms: ED Discharge - Pt. Copy, Patient Portal Self Enrollment Instructions: High Blood Pressure Diet: low fat, low cholesterol Activity: increase activity as tolerated Referrals: Zahra Elmore NP [Primary Care Provider] - 1-2 Weeks Home Medications: Ambulatory Orders Furosemide Tab [Lasix Tab] 40 mg PO BID 07/28/16 Warfarin Sodium [Coumadin] 10 mg PO SUTUTHSA 10/05/16 Metoprolol Succinate [Metoprolol Succinate ER] 25 mg PO BID 12/18/16 Sacubitril-Valsartan [Entresto 24-26 mg] 1 tab PO BID 12/31/16 Warfarin Sodium 5 mg PO MOWEFR 12/31/16 cloNIDine HCL [Catapres] 0.1 mg PO TID PRN 12/31/16
--- NOTE | 2017-01-27 16:04 | RAD ---
EXAM DESCRIPTION: Chest,2 Views CLINICAL HISTORY: SOB COMPARISON: September 29, 2016 TECHNIQUE: PA/lateral FINDINGS: The lungs are adequately expanded but a prominent central vessels and indistinctness centrally suggesting early changes of pulmonary edema with very slight deterioration from previous study. No large pleural effusions are noted. Stable mild cardiomegaly with indwelling permanent pacer and defibrillator. The smaller lead extends more peripherally towards the ventricular apex than seen on previous examination. Indistinct and prominent central hilar markings and vessels suggesting an element of vascular congestion and early edema The bony spine and chest wall is normal for age in appearance. IMPRESSION: Slight deterioration of the chest with cardiomegaly and central vascular congestion with early changes of pulmonary edema. Slightly more peripheral location of the smaller pacing lead towards the ventricular apex is evident in comparison to prior September study. Electronically signed by: Ananth Clemons MD 01/27/2017 4:04 PM CDT
[2017-01-27 19:03] VITALS: BP 142/81; O2SAT 95
== END 2017-01-27 19:03 | disposition home or self-care (01) ==
LOC: ER 15:05
DX: J44.9 Chronic obstructive pulmonary disease, unspecified (principal); I11.0 Hypertensive heart disease with heart failure; I50.9 Heart failure, unspecified; Z95.0 Presence of cardiac pacemaker; Z91.030 Bee allergy status; Z91.018 Allergy to other foods; Z79.01 Long term (current) use of anticoagulants; Z79.899 Other long term (current) drug therapy; Z87.891 Personal history of nicotine dependence

== ENCOUNTER → 2017-02-24 | Outpatient (CLI) | payer MEDICARE, MEDICAID | END | disposition home or self-care (01) | LOC: NC 14:16 | DX: I48.2 Chronic atrial fibrillation (principal) ==

== ENCOUNTER 2017-03-03 17:24 | Emergency (ER) | payer MEDICARE, MEDICAID ==
--- NOTE | 2017-03-03 18:12 | ED.PDOC ---
History of Present Illness - General Chief Complaint: Respiratory Problem Stated Complaint: weight gain,leg swelling,sob Time Seen by Provider: 03/03/17 18:10 Source: patient Exam Limitations: no limitations - History of Present Illness Initial Comments: Ananth Sawant 46 y/o male with history of cardiomyopathy a.fib,htn chf s/p pacemaker sent to er by his home health nurse with weight gain of 7 pounds and sob today he stated that he had been drinking extra fluids about 2 liters of water a day since he feels thirsty. Timing/Duration: 4-6 hours Severity: moderate Improving Factors: nothing Worsening Factors: nothing Associated Symptoms: shortness of breath Allergies/Adverse Reactions: Allergies Bee Venom Allergy (Verified 01/27/17 15:41) Coconut Oil Allergy (Verified 01/27/17 15:41) Home Medications: Ambulatory Orders Furosemide Tab [Lasix Tab] 40 mg PO BID 07/28/16 Warfarin Sodium [Coumadin] 10 mg PO SUTUTHSA 10/05/16 Metoprolol Succinate [Metoprolol Succinate ER] 25 mg PO BID 12/18/16 Sacubitril-Valsartan [Entresto 24-26 mg] 1 tab PO BID 12/31/16 Warfarin Sodium 5 mg PO MOWEFR 12/31/16 cloNIDine HCL [Catapres] 0.1 mg PO TID PRN 12/31/16 Review of Systems - Review of Systems Constitutional: States: no symptoms reported EENTM: States: no symptoms reported Respiratory: States: no symptoms reported Cardiology: States: see HPI Gastrointestinal/Abdominal: States: no symptoms reported Genitourinary: States: no symptoms reported Musculoskeletal: States: no symptoms reported Skin: States: no symptoms reported Neurological: States: no symptoms reported Endocrine: States: no symptoms reported Hematologic/Lymphatic: States: no symptoms reported Past Medical History (General) - Patient Medical History Hx Seizures: No Hx Stroke: No Hx Dementia: No Hx Asthma: Yes Hx of COPD: Yes Hx Cardiac Disorders: Yes Hx Congestive Heart Failure: Yes Hx Pacemaker: Yes Hx Hypertension: Yes Hx Thyroid Disease: No Hx Diabetes: No Hx Gastroesophageal Reflux: No Hx Renal Disease: No Hx Cancer: No Hx of HIV: No Hx Hepatitis C: No Hx MRSA: No MRSA Source:: Wound Surgical History: pacemaker - Vaccination History Hx Tetanus, Diphtheria Vaccination: Yes Hx Influenza Vaccination: Yes - 2016 Hx Pneumococcal Vaccination: Yes - 2016 - Social History Hx Tobacco Use: Yes Hx Chewing Tobacco Use: No Hx Alcohol Use: No Hx Substance Use: No Hx Substance Use Treatment: No Hx Depression: No Hx Physical Abuse: No Hx Emotional Abuse: No Hx Suspected Abuse: No - Activities of Daily Living Patient Lives Alone: No - family Grooming Ability: Independent Eating (Feeding) Ability: Independent Toileting Ability: Independent - Female History Patient : No Family Medical History - Family History Mother Family History: No Known Living Status: Still Living Hx Cardiac Disease: Yes - parents Hx Family Cancer: Yes - mom Hx Family;Other: copd Physical Exam - Physical Exam General Appearance: Alert, No apparent distress Eye Exam: bilateral normal Ears, Nose, Throat: hearing grossly normal, normal ENT inspection, normal pharynx Neck: non-tender, full range of motion, supple Respiratory: chest non-tender, lungs clear, no respiratory distress, rales - bases Cardiovascular/Chest: normal peripheral pulses, regular rate, rhythm, no gallop , no murmur Peripheral Pulses: radial,right: 2+, radial,left: 2+ Gastrointestinal/Abdominal: normal bowel sounds, non tender, soft, no organomegaly Back Exam: normal inspection, no CVA tenderness Extremity: normal range of motion, no calf tenderness, pedal edema - 2+ Neurologic: no motor/sensory deficits, alert, normal mood/affect, oriented x 3 Skin Exam: normal color, warm/dry Lymphatic: no adenopathy Progress - Progress Progress: 03/03/17 20:33 Vital Signs - 8 hr 03/03/17 03/03/17 17:32 18:40 Temperature 98.1 F Pulse Rate [ 65 68 Apical] Respiratory 24 22 Rate Blood Pressure 148/96 154/88 [Left Arm] O2 Sat by Pulse 93 L 94 L Oximetry Laboratory Tests 03/03/17 03/03/17 19:00 19:00 WBC 9.6 RBC 5.32 Hgb 15.9 Hct 48.5 MCV 91.0 MCH 29.9 MCHC 32.8 L RDW 15.5 H Plt Count 208 MPV 9.0 Absolute Neuts (auto) 6.10 Absolute Lymphs (auto) 2.60 Absolute Monos (auto) 0.70 Absolute Eos (auto) 0.10 Absolute Basos (auto) 0.10 Neutrophils % 63.3 Lymphocytes % 27.6 Monocytes % 7.0 Eosinophils % 1.0 Basophils % 1.1 PT 32.4 H* INR 2.900 PTT (SP) 48.8 H D-Dimer, Quantitative < 200 Sodium 144 Potassium 3.6 Chloride 106 Carbon Dioxide 28 Anion Gap 13.6 BUN 23 H Creatinine 1.41 H BUN/Creatinine Ratio 16.3 Random Glucose 108 H Serum Osmolality 291.1 Calcium 8.5 Magnesium 1.9 Total Bilirubin 0.4 Direct Bilirubin < 0.1 Indirect Bilirubin 0.3 AST 15 ALT 17 Alkaline Phosphatase 78 Creatine Kinase 120 CK-MB (CK-2) 1.6 CK-MB (CK-2) % Not Reportable Troponin I < 0.02 B-Natriuretic Peptide 188.0 H Serum Total Protein 6.9 Albumin 3.5 - EKG/XRAY/CT XRAY: chest - moderate cardiomegaly with increase pulmonary congestion and interstitial infiltrate Departure - Departure Clinical Impression: Diastolic CHF, acute on chronic Dyspnea Qualifiers: Dyspnea type: other forms of dyspnea Qualified Code(s): R06.09 - Other forms of dyspnea Time of Disposition: 20:38 Disposition: Discharge to Home or Self Care Condition: Fair Departure Forms: ED Discharge - Pt. Copy, Patient Portal Self Enrollment Diet: low fat, low cholesterol, low salt diet, other - limit fluid intake 1-1.5 L/day Referrals: Zahra Elmore NP [Primary Care Provider] - 1-2 Weeks Home Medications: Ambulatory Orders Furosemide Tab [Lasix Tab] 40 mg PO BID 07/28/16 Warfarin Sodium [Coumadin] 10 mg PO SUTUTHSA 10/05/16 Metoprolol Succinate [Metoprolol Succinate ER] 25 mg PO BID 12/18/16 Sacubitril-Valsartan [Entresto 24-26 mg] 1 tab PO BID 12/31/16 Warfarin Sodium 5 mg PO MOWEFR 12/31/16 cloNIDine HCL [Catapres] 0.1 mg PO TID PRN 12/31/16 Additional Instructions: Return to emergency room as needed;Continue with current medications
[2017-03-03] MEDS ORDERED: BUMETANIDE 0.25 MG/ML VIAL IV ONE (18:13)
--- NOTE | 2017-03-03 18:35 | RAD ---
EXAM DESCRIPTION: Chest,1 View CLINICAL HISTORY: 46 years Male sob COMPARISON: 01/27/2017 FINDINGS: Cardiac enlargement. Pacemaker in place. There is prominence of the central pulmonary vasculature and increased density in the lower two thirds of the hemithoraces which may reflect developing edema. Definite effusion is not seen in the frontal projection. IMPRESSION: Moderate cardiomegaly with central pulmonary vascular congestion and some increased prominently interstitial density in the lower two thirds of the hemithoraces. Findings may reflect developing pulmonary edema Electronically signed by: Zuleika Zelaya 03/03/2017 6:34 PM CDT
[2017-03-03] MEDS ORDERED: BUMETANIDE 0.25 MG/ML VIAL ONE (20:14)
[2017-03-03 21:04] VITALS: TEMP 98.5; O2SAT 93
[2017-03-03 21:05] VITALS: BP 130/80
== END 2017-03-03 21:05 | disposition home or self-care (01) ==
LOC: ER 17:24
DX: I11.0 Hypertensive heart disease with heart failure (principal); I50.33 Acute on chronic diastolic (congestive) heart failure; J44.9 Chronic obstructive pulmonary disease, unspecified; R06.09 Other forms of dyspnea; Z95.0 Presence of cardiac pacemaker; Z91.030 Bee allergy status; Z91.018 Allergy to other foods; Z79.01 Long term (current) use of anticoagulants; Z79.899 Other long term (current) drug therapy; Z87.891 Personal history of nicotine dependence
CPT/HCPCS: 36415; 71010; 80048; 80076; 82550; 82553; 83880; 84484; 85025; 85379; 85610; 85730; 93005; J3490

== ENCOUNTER → 2017-03-04 | Outpatient (CLI) | payer MEDICARE, MEDICAID | END | disposition home or self-care (01) | LOC: YCFC.O 14:24 | PROVIDERS: ATTEND Nurse Practitioner Family | DX: R06.02 Shortness of breath (principal) ==

== ENCOUNTER 2017-03-24 17:25 | Emergency (ER) | payer MEDICARE, MEDICAID ==
[2017-03-24 17:49] VITALS: BP 152/86; TEMP 98.2; O2SAT 92
[2017-03-24] MEDS ORDERED: IPRATROPIUM/ALBUTEROL 3 ML VIAL NEB ONE ×2 (18:25→21:34)
[2017-03-24] MEDS ORDERED: cefTRIAXone SODIUM 1 GM in SODIUM CHL 0.9% 50ML MIN-BAG+ 50 ML IVPB ONE (18:25)
[2017-03-24] MEDS ORDERED: AZITHROMYCIN IV 500 MG in SODIUM CHLORIDE 0.9% 250ML 250 ML IVPB ONE (18:25)
--- NOTE | 2017-03-24 18:32 | ED.PDOC ---
History of Present Illness - General Source: patient Exam Limitations: no limitations - History of Present Illness Initial Comments: 46 YEAR OLD MALE WITH A H/O CHF, COPD, AND PACEMAKER PRESENTS WITH COMPLAINT OF SOB, COUGH, AND WHEEZING FOR THE PAST WEEK. PT HAD AN OUTPATIENT CXR DONE TODAY THAT WAS ORDERED BY PCP. PT WAS INSTRUCTED TO COME TO ED BY HOME HEALTH AIDE WHO WAS UNABLE TO GET IN TOUCH WITH PCP REGARDING CXR RESULTS. Timing/Duration: 1 week Severity: moderate Possible Cause: chronic episodes, smoke exposure Improving Factors: immobilization, rest Worsening Factors: movement <Keyana Severino H - Last Filed: 03/24/17 18:29> <Eitan Ramirez - Last Filed: 03/24/17 21:47> - General Chief Complaint: Respiratory Problem Stated Complaint: Cough, increasing SOB Time Seen by Provider: 03/24/17 18:25 - History of Present Illness Allergies/Adverse Reactions: Allergies Bee Venom Allergy (Verified 03/24/17 17:39) Coconut Oil Allergy (Verified 03/24/17 17:39) Home Medications: Ambulatory Orders Furosemide Tab [Lasix Tab] 40 mg PO BID 07/28/16 Warfarin Sodium [Coumadin] 10 mg PO SUTUTHSA 10/05/16 Metoprolol Succinate [Metoprolol Succinate ER] 25 mg PO BID 12/18/16 Sacubitril-Valsartan [Entresto 24-26 mg] 1 tab PO BID 12/31/16 Warfarin Sodium 5 mg PO MOWEFR 12/31/16 cloNIDine HCL [Catapres] 0.1 mg PO TID PRN 12/31/16 Azithromycin 500 mg PO DAILY #5 tab 03/24/17 Levofloxacin 500 mg PO DAILY #5 tab 03/24/17 predniSONE [Prednisone] 20 mg PO DAILY #5 tab 03/24/17 Review of Systems - Review of Systems Constitutional: States: chills. Denies: fever Respiratory: States: see HPI, cough, short of breath, wheezing Cardiology: Denies: chest pain, palpitations Gastrointestinal/Abdominal: Denies: abdominal pain, nausea Musculoskeletal: Denies: back pain, joint swelling Skin: Denies: change in color, lesions Neurological: Denies: numbness, paresthesia Endocrine: Denies: excessive sweating, intolerance to cold Hematologic/Lymphatic: Denies: anemia, blood clots <Keyana Severino - Last Filed: 03/24/17 18:29> Past Medical History (General) - Patient Medical History Hx Seizures: No Hx Stroke: No Hx Dementia: No Hx Asthma: Yes Hx of COPD: Yes Hx Cardiac Disorders: Yes - Atrial fib Hx Congestive Heart Failure: Yes Hx Pacemaker: Yes Hx Hypertension: Yes Hx Thyroid Disease: No Hx Diabetes: No Hx Gastroesophageal Reflux: No Hx Renal Disease: No Hx Cancer: No Hx of HIV: No Hx Hepatitis C: No Hx MRSA: No MRSA Source:: Wound Surgical History: pacemaker - Vaccination History Hx Tetanus, Diphtheria Vaccination: Yes Hx Influenza Vaccination: Yes - 2015 Hx Pneumococcal Vaccination: Yes - 2016 - Social History Hx Tobacco Use: Yes Hx Chewing Tobacco Use: No Hx Alcohol Use: No Hx Substance Use: No Hx Substance Use Treatment: No Hx Depression: No Hx Physical Abuse: No Hx Emotional Abuse: No Hx Suspected Abuse: No - Female History Patient : No <Keyana Severino - Last Filed: 03/24/17 18:29> Family Medical History - Family History Mother Family History: No Known Living Status: Still Living Hx Cardiac Disease: Yes - parents Hx Family Cancer: Yes - mom Hx Family;Other: copd <Keyana Severino - Last Filed: 03/24/17 18:29> Physical Exam - Physical Exam General Appearance: Obvious distress, Ill Appearing, Obese Neck: non-tender, full range of motion Respiratory: accessory muscle use, rales, wheezing Cardiovascular/Chest: regular rate, rhythm, no murmur Gastrointestinal/Abdominal: non tender, soft Extremity: non-tender, normal inspection, no pedal edema Neurologic: alert, normal mood/affect, oriented x 3 Skin Exam: normal color, warm/dry <Keyana Severino - Last Filed: 03/24/17 18:29> Progress - Progress Progress: 03/24/17 21:37 the patient is a 46-year-old male with a multitude of long-standing medical problems presenting to the emergency room secondary to respiratory symptoms for the last week. The patient has known congestive heart failure, COPD, recurrent pneumonias, arrhythmia issues with a pacer currently, long- standing anticoagulation, and multiple recurrent abscesses. Laboratory work for the patient is near baseline with the exception of an INR elevated at 5.1. He has been instructed to hold his Coumadin for the next 3 days. He will need a recheck at that time. The patient does appear to be in a moderate COPD exacerbation. It is possible he may have underlying infection in the form of an atypical pneumonia. The patient is going to be dual coverage given his history with azithromycin and Levaquin for a period of 5 days both. the patient did receive a CT scan of the chest without contrast due to concern for right significant pulmonary nodule on the chest x-ray. No such nodule was noted on the CT scan. Only patchy infiltration scattered of the lower lobes. Blood culture has been performed here. Additionally he does need to continue his DuoNeb treatments every 4 hours for now. It would be extremely beneficial if he would stop smoking until at least this exacerbation has resolved. I do not believe that there is a significant CHF component contributing to the shortness of breath at this time. He is not hypoxic. He is not febrile. He is to continue his routine Lasix dose. The patient incidentally was found to have a right anterior chest wall skin abscess. This was aspirated with an 18- gauge needle given his INR. Wound culture is being performed. He will need to monitor this clinically at home. He needs to follow-up with his primary care doctor Tuesday. ER warnings were given for any significant worsening. - Results/Orders Results/Orders: Vital Signs - 8 hr 03/24/17 17:40 Temperature 98.2 F Pulse Rate [ 65 Left Radial] Respiratory 20 Rate Blood Pressure 152/86 [Right Arm] O2 Sat by Pulse 92 L Oximetry 03/24/17 18:30 EKG STAT shows a paced ventricular rhythm at 62 bpm 03/24/17 18:55 BLOOD CULTURE Stat 03/24/17 20:28 WOUND CULTURE Stat 03/24/17 20:30 WOUND CULTURE Routine Laboratory Results - last 24 hr 03/24/17 03/24/17 03/24/17 18:55 18:55 18:55 WBC 11.1 H RBC 5.23 Hgb 15.6 Hct 47.2 MCV 90.3 MCH 29.8 MCHC 33.0 RDW 15.3 H Plt Count 299 MPV 8.2 Absolute Neuts (auto) 7.80 H Absolute Lymphs (auto) 2.30 Absolute Monos (auto) 0.90 H Absolute Eos (auto) 0.10 Absolute Basos (auto) 0.10 Neutrophils % 69.9 Lymphocytes % 20.7 Monocytes % 7.7 Eosinophils % 0.7 L Basophils % 1.0 PT 57.7 H* INR 5.190 H* PTT (SP) 56.9 H pCO2 pO2 HCO3 ABG pH ABG O2 Saturation ABG Base Excess ABG Deoxyhemoglobin Oxyhemoglobin % Carboxyhemoglobin % Methemoglobin % Sat Calc Total Hemoglobin Sodium 143 Potassium 3.7 Chloride 104 Carbon Dioxide 30 Anion Gap 12.7 BUN 21 H Creatinine 1.29 BUN/Creatinine Ratio 16.3 Random Glucose 98 Serum Osmolality 287.9 Lactic Acid Calcium 8.9 Total Bilirubin 0.2 AST 16 ALT 15 Alkaline Phosphatase 77 Creatine Kinase CK-MB (CK-2) CK-MB (CK-2) % Troponin I B-Natriuretic Peptide 369.0 H* Serum Total Protein 7.6 Albumin 3.4 Globulin 4.2 H Albumin/Globulin Ratio 0.8 L 03/24/17 03/24/17 03/24/17 18:55 18:55 19:00 WBC RBC Hgb Hct MCV MCH MCHC RDW Plt Count MPV Absolute Neuts (auto) Absolute Lymphs (auto) Absolute Monos (auto) Absolute Eos (auto) Absolute Basos (auto) Neutrophils % Lymphocytes % Monocytes % Eosinophils % Basophils % PT INR PTT (SP) pCO2 48 pO2 63 L HCO3 29.5 ABG pH 7.410 ABG O2 Saturation 92.7 L ABG Base Excess 4.3 ABG Deoxyhemoglobin 7.1 H Oxyhemoglobin % 89.8 L Carboxyhemoglobin % 2.3 H Methemoglobin % Sat 0.8 Calc Total Hemoglobin 14.8 Sodium Potassium Chloride Carbon Dioxide Anion Gap BUN Creatinine BUN/Creatinine Ratio Random Glucose Serum Osmolality Lactic Acid 0.8 Calcium Total Bilirubin AST ALT Alkaline Phosphatase Creatine Kinase 365 H* CK-MB (CK-2) 3.1 CK-MB (CK-2) % 0.85 Troponin I < 0.02 B-Natriuretic Peptide Serum Total Protein Albumin Globulin Albumin/Globulin Ratio <Eitan Ramirez L - Last Filed: 03/24/17 21:47> Departure <Keyana Severino H - Last Filed: 03/24/17 18:29> - Departure Diet: low salt diet Activity: increase activity as tolerated <Eitan Ramirez - Last Filed: 03/24/17 21:47> - Departure Clinical Impression: COPD with acute exacerbation, Atypical pneumonia, Hypercoagulable state Abscess of skin Qualifiers: Site of cutaneous abscess: trunk Site of cutaneous abscess of trunk: chest wall Qualified Code(s): L02.213 - Cutaneous abscess of chest wall Disposition: Discharge to Home or Self Care Condition: Fair Departure Forms: ED Discharge - Pt. Copy, Patient Portal Self Enrollment Instructions: DI for Chronic Obstructive Pulmonary Disease Referrals: Zahra Elmore, EPIC PROFESSIONAL [Primary Care Provider] - 1-5 Days Prescriptions: Azithromycin 500 mg PO DAILY #5 tab Levofloxacin 500 mg PO DAILY #5 tab predniSONE [Prednisone] 20 mg PO DAILY #5 tab Home Medications: Ambulatory Orders Furosemide Tab [Lasix Tab] 40 mg PO BID 07/28/16 Warfarin Sodium [Coumadin] 10 mg PO SUTUTHSA 10/05/16 Metoprolol Succinate [Metoprolol Succinate ER] 25 mg PO BID 12/18/16 Sacubitril-Valsartan [Entresto 24-26 mg] 1 tab PO BID 12/31/16 Warfarin Sodium 5 mg PO MOWEFR 12/31/16 cloNIDine HCL [Catapres] 0.1 mg PO TID PRN 12/31/16 Azithromycin 500 mg PO DAILY #5 tab 03/24/17 Levofloxacin 500 mg PO DAILY #5 tab 03/24/17 predniSONE [Prednisone] 20 mg PO DAILY #5 tab 03/24/17 Additional Instructions: the patient is a 46-year-old male with a multitude of long-standing medical problems presenting to the emergency room secondary to respiratory symptoms for the last week. The patient has known congestive heart failure, COPD, recurrent pneumonias, arrhythmia issues with a pacer currently, long- standing anticoagulation, and multiple recurrent abscesses. Laboratory work for the patient is near baseline with the exception of an INR elevated at 5.1. He has been instructed to hold his Coumadin for the next 3 days. He will need a recheck at that time. The patient does appear to be in a moderate COPD exacerbation. It is possible he may have underlying infection in the form of an atypical pneumonia. The patient is going to be dual coverage given his history with azithromycin and Levaquin for a period of 5 days both. the patient did receive a CT scan of the chest without contrast due to concern for right significant pulmonary nodule on the chest x-ray. No such nodule was noted on the CT scan. Only patchy infiltration scattered of the lower lobes. Blood culture has been performed here. Additionally he does need to continue his DuoNeb treatments every 4 hours for now. It would be extremely beneficial if he would stop smoking until at least this exacerbation has resolved. I do not believe that there is a significant CHF component contributing to the shortness of breath at this time. He is not hypoxic. He is not febrile. He is to continue his routine Lasix dose. The patient incidentally was found to have a right anterior chest wall skin abscess. This was aspirated with an 18- gauge needle given his INR. Wound culture is being performed. He will need to monitor this clinically at home. He needs to follow-up with his primary care doctor Tuesday. ER warnings were given for any significant worsening.
[2017-03-24] MEDS ORDERED: SODIUM CHL 0.9% 50ML MIN-BAG+ 50 ML IVPB ONE (18:47)
[2017-03-24] MEDS ORDERED: cefTRIAXone SODIUM 1 GM VIAL ONE (18:47)
[2017-03-24] MEDS ORDERED: FUROSEMIDE 40 MG TAB PO ONE (20:27)
--- NOTE | 2017-03-24 21:03 | CT ---
EXAM: Chest w/o Contrast CLINICAL INDICATION: 46-year-old male with abnormal x-ray and nodule. COMPARISON: None. EXAMINATION: CT chest was performed without contrast. This exam was performed according to our departmental dose optimization program which includes use of automated exposure control, adjustment of the mA and/or kV according to patient size and/or use of iterative reconstruction technique. FINDINGS: Chest: Evaluation through the lungs reveals patchy airspace opacification of the bilateral lower lobes may be secondary to developing consolidation or aspirate. No discrete clearly defined pulmonary nodule is identified. There is dependent basilar atelectasis and scarring. The tracheobronchial airways are patent. No significant mediastinal or axillary lymphadenopathy by CT measurement criteria. Heart size within normal limits. No pericardial effusion. Pacemaker device overlies and obscures portions of the the LEFT hemithorax with leads intact at the level of the battery pack, stable in course and termination. Limited evaluation of the upper abdomen shows no acute intra-abdominal abnormalities. The osseous structures are within normal limits. IMPRESSION: 1. Evaluation through the lungs reveals patchy airspace opacification of the bilateral lower lobes may be secondary to developing consolidation or aspirate. Please correlate with patient clinical findings and follow-up for resolution. No discrete clearly defined pulmonary nodule is identified. Electronically signed by: Araceli Mueller MD 03/24/2017 9:01 PM CDT Workstation: [id number]
[2017-03-24] MEDS ORDERED: cefTRIAXone SODIUM 1 GM VIAL IM ONE (21:33)
[2017-03-24] MEDS ORDERED: predniSONE 20 MG TAB PO ONE (21:33)
[2017-03-24] MEDS ORDERED: AZITHROMYCIN 250 MG TAB PO ONE (21:33)
[2017-03-24] MEDS ORDERED: levoFLOXacin 500 MG TAB PO ONE (21:33)
[2017-03-24] MEDS ORDERED: LIDOCAINE 1% 10 ML VIAL INJ ONE (21:44)
== END 2017-03-24 22:16 | disposition home or self-care (01) ==
LOC: ER 17:25
DX: J44.1 Chronic obstructive pulmonary disease with (acute) exacerbation (principal); J18.9 Pneumonia, unspecified organism; D68.59 Other primary thrombophilia; L02.213 Cutaneous abscess of chest wall; I11.0 Hypertensive heart disease with heart failure; I50.9 Heart failure, unspecified; I48.91 Unspecified atrial fibrillation; Z95.0 Presence of cardiac pacemaker; F17.200 Nicotine dependence, unspecified, uncomplicated; Z79.01 Long term (current) use of anticoagulants; Z79.899 Other long term (current) drug therapy; Z91.030 Bee allergy status; Z91.018 Allergy to other foods
CPT/HCPCS: 36415; 36600; 71250; 80053; 82550; 82553; 82803; 82805; 83605; 83880; 84484; 85025; 85610; 85730; 87040; 87070; 93005; 94640; J0696; J7050; J7512; J7620; Q0144

== ENCOUNTER → 2017-03-24 | Outpatient (CLI) | payer MEDICARE, MEDICAID ==
--- NOTE | 2017-03-24 14:54 | RAD ---
EXAM DESCRIPTION: Chest,2 Views CLINICAL HISTORY: 46 years Male, COPD, COUGH, CHRONIC ATRIAL FIBRILLATION COMPARISON: 03/03/2017 IMPRESSION: The heart remains enlarged with central pulmonary vascular congestion. A left chest wall dual lead cardiac device is demonstrated. Interstitial and airspace opacities are again demonstrated in the perihilar and bibasilar regions of both lungs. The findings remain most consistent with CHF with pulmonary edema versus multifocal pneumonia. There is a more focal 2.4 cm nodular opacity in the right lower lung zone which is indeterminate. A follow-up chest radiograph in the next 4 weeks to confirm complete resolution is recommended. A pulmonary nodule/pulmonary neoplasm is the diagnosis of exclusion. No large pleural effusion or pneumothorax. No acute osseous abnormality. Electronically signed by: Efren Cui MD 03/24/2017 2:54 PM CDT
== END | disposition home or self-care (01) ==
LOC: YCFC.O 12:36
PROVIDERS: ATTEND Nurse Practitioner Family
DX: I48.2 Chronic atrial fibrillation (principal); J44.9 Chronic obstructive pulmonary disease, unspecified; R05 Cough

== ENCOUNTER → 2017-03-31 | Outpatient (CLI) | payer MEDICARE, MEDICAID | LOC: NC 15:50 | DX: I48.2 Chronic atrial fibrillation (principal); I13.11 Hypertensive heart and chronic kidney disease without heart failure, with stage 5 chronic kidney disease, or end stage renal disease; I50.23 Acute on chronic systolic (congestive) heart failure ==

== ENCOUNTER → 2017-04-04 | Outpatient (CLI) | payer MEDICARE, MEDICAID | LOC: NC 16:10 | DX: I48.2 Chronic atrial fibrillation (principal) ==

== ENCOUNTER → 2017-04-20 | Outpatient (CLI) | payer MEDICARE, MEDICAID | END | disposition home or self-care (01) | LOC: NC 18:22 | PROVIDERS: ATTEND General Practice | DX: I48.2 Chronic atrial fibrillation (principal) ==

== ENCOUNTER → 2017-04-28 | Outpatient (CLI) | payer MEDICARE | END | disposition home or self-care (01) | LOC: NC 15:24 | PROVIDERS: ATTEND General Practice | DX: I48.2 Chronic atrial fibrillation (principal) ==

== ENCOUNTER → 2017-05-06 | Outpatient (CLI) | payer MEDICARE | END | disposition home or self-care (01) | LOC: NC 12:16 | PROVIDERS: ATTEND General Practice | DX: I48.2 Chronic atrial fibrillation (principal) ==

== ENCOUNTER → 2017-05-13 | Outpatient (CLI) | payer MEDICARE | END | disposition home or self-care (01) | LOC: NC 13:14 | PROVIDERS: ATTEND General Practice | DX: I48.91 Unspecified atrial fibrillation (principal) ==

== ENCOUNTER → 2017-05-24 | Outpatient (CLI) | payer MEDICARE | END | disposition home or self-care (01) | LOC: NC 11:46 | PROVIDERS: ATTEND General Practice | DX: I48.2 Chronic atrial fibrillation (principal) ==

== ENCOUNTER → 2017-06-03 | Outpatient (CLI) | payer MEDICARE, MEDICAID ==
--- NOTE | 2017-06-03 13:46 | RAD ---
EXAM DESCRIPTION: Chest,2 Views CLINICAL HISTORY: ACUTE EXACERBATION OF CHRONIC OBSTRUTIVE AIRWAYS DISEASE COMPARISON: March 24, 2017 Findings/impression: Frontal and lateral views of the chest. Multiple leads left chest pacemaker is stable in position. Cardiac silhouette shows cardiomegaly with mild vascular congestion. Subtle patchy opacities demonstrated within the bilateral lung bases, decreased compared to March 24, 2017. Findings compatible with congestive heart failure with mild pulmonary edema. Pneumonia versus atelectasis cannot be entirely excluded. Previously noted nodular opacity in the right lower lung zone is decreased in size compared to previous, likely resolving pneumonia versus atelectasis. No significant pleural effusion. No pneumothorax. Electronically signed by: Kings Swenson MD 06/03/2017 1:44 PM CDT
== END | disposition home or self-care (01) ==
LOC: LAB.O 12:57
PROVIDERS: ATTEND General Practice
DX: I48.2 Chronic atrial fibrillation (principal); J44.1 Chronic obstructive pulmonary disease with (acute) exacerbation

== ENCOUNTER → 2017-06-16 | Outpatient (CLI) | payer MEDICARE, MEDICAID | END | disposition home or self-care (01) | LOC: NC 18:11 | PROVIDERS: ATTEND General Practice | DX: I48.2 Chronic atrial fibrillation (principal) ==

== ENCOUNTER → 2017-06-23 | Outpatient (CLI) | payer MEDICARE, MEDICAID | END | disposition home or self-care (01) | LOC: NC 16:44 | PROVIDERS: ATTEND General Practice | DX: I48.2 Chronic atrial fibrillation (principal); I50.9 Heart failure, unspecified ==

== ENCOUNTER → 2017-07-21 | Outpatient (CLI) | payer MEDICARE, MEDICAID | END | disposition home or self-care (01) | LOC: NC 11:36 | PROVIDERS: ATTEND General Practice | DX: I50.9 Heart failure, unspecified (principal) ==

== ENCOUNTER → 2017-07-26 | Outpatient (CLI) | payer MEDICARE, MEDICAID | END | disposition home or self-care (01) | LOC: NC 15:00 | PROVIDERS: ATTEND General Practice | DX: I13.0 Hypertensive heart and chronic kidney disease with heart failure and stage 1 through stage 4 chronic kidney disease, or unspecified chronic kidney disease (principal); J44.9 Chronic obstructive pulmonary disease, unspecified; I50.9 Heart failure, unspecified; I48.2 Chronic atrial fibrillation ==

== ENCOUNTER → 2017-08-09 | Outpatient (CLI) | payer MEDICARE, MEDICAID | END | disposition home or self-care (01) | LOC: NC 13:24 | PROVIDERS: ATTEND General Practice | DX: I49.1 Atrial premature depolarization (principal); I50.40 Unspecified combined systolic (congestive) and diastolic (congestive) heart failure ==

== ENCOUNTER → 2017-08-19 | Outpatient (CLI) | payer MEDICARE, MEDICAID | END | disposition home or self-care (01) | LOC: NC 13:55 | PROVIDERS: ATTEND General Practice | DX: I48.91 Unspecified atrial fibrillation (principal) ==

== ENCOUNTER → 2017-08-22 | Outpatient (CLI) | payer MEDICARE, MEDICAID | END | disposition home or self-care (01) | LOC: NC 10:23 | PROVIDERS: ATTEND General Practice | DX: I48.91 Unspecified atrial fibrillation (principal) ==

== ENCOUNTER → 2017-09-01 | Outpatient (CLI) | payer MEDICARE, MEDICAID | END | disposition home or self-care (01) | LOC: NC 15:36 | PROVIDERS: ATTEND General Practice | DX: I48.91 Unspecified atrial fibrillation (principal) ==

== ENCOUNTER → 2017-09-22 | Outpatient (CLI) | payer MEDICARE, MEDICAID | END | disposition home or self-care (01) | LOC: NC 13:08 | PROVIDERS: ATTEND General Practice | DX: I12.9 Hypertensive chronic kidney disease with stage 1 through stage 4 chronic kidney disease, or unspecified chronic kidney disease (principal); N18.9 Chronic kidney disease, unspecified; I48.2 Chronic atrial fibrillation ==

== ENCOUNTER → 2017-09-29 | Outpatient (CLI) | payer MEDICARE, MEDICAID | END | disposition home or self-care (01) | LOC: NC 17:05 | PROVIDERS: ATTEND General Practice | DX: I48.2 Chronic atrial fibrillation (principal) ==

== ENCOUNTER → 2017-10-20 | Outpatient (CLI) | payer MEDICARE, MEDICAID | LOC: NC 16:54 | PROVIDERS: ATTEND General Practice | DX: I48.2 Chronic atrial fibrillation (principal) ==

== ENCOUNTER → 2017-11-11 | Outpatient (CLI) | payer MEDICARE, MEDICAID | LOC: NC 12:29 | PROVIDERS: ATTEND General Practice | DX: I48.2 Chronic atrial fibrillation (principal) ==

== ENCOUNTER → 2017-11-24 | Outpatient (CLI) | payer MEDICARE, MEDICAID | LOC: NC 12:11 | PROVIDERS: ATTEND General Practice | DX: I48.2 Chronic atrial fibrillation (principal) ==

== ENCOUNTER → 2017-11-30 | Outpatient (CLI) | payer MEDICARE, MEDICAID ==
--- NOTE | 2017-11-30 13:58 | US ---
EXAM DESCRIPTION: Abdomen,Limited: ULTRASOUND. CLINICAL HISTORY: UMBILICAL HERNIA WITHOUT OBSTRUCTION OR GANGRENE. Pain near umbilicus after moving fracture. COMPARISON: None Available. TECHNIQUE: Transcutaneous scanning: Two-dimensional and Doppler modes. FINDINGS: No defects noted in the abdominal wall. No peristalsis of bowel in the abdominal wall or subcutaneous adipose tissue. IMPRESSION: No defects in the abdominal wall abutting the umbilicus. No herniated tissue visualized. Electronically signed by: Elie Chavira MD 11/30/2017 1:57 PM CDT
== END ==
LOC: US 09:30
PROVIDERS: ATTEND Nurse Practitioner Family
DX: K42.9 Umbilical hernia without obstruction or gangrene (principal)

== ENCOUNTER 2017-12-11 14:26 | Inpatient (IN) | payer MEDICARE, MEDICAID ==
[2017-12-11] MEDS ORDERED: fentaNYL CITRATE INJ 50 MCG/ML AMP IV ONE ×2 (14:46→20:03)
[2017-12-11] MEDS ORDERED: PROMETHAZINE HCL INJ 12.5 MG in SODIUM CHLORIDE 0.9% 50ML 50 ML IVPB ONE (14:46)
--- NOTE | 2017-12-11 14:57 | ED.PDOC ---
History of Present Illness - General Chief Complaint: Abdominal Pain Stated Complaint: hernia pain Time Seen by Provider: 12/11/17 14:29 Source: patient Exam Limitations: no limitations Additional Information: C/O ABDOMINAL PAIN. HAS HERNIA AND OUTPT CT SCHEDULED FOR TOMORROW. C/O INCREASING ABDOMINAL PAIN TODAY WITH BLOOD IN STOOL WHICH STARTED TODAY. CAME TO ER FOR EVALUATION. - History of Present Illness Severity: moderate Improving Factors: nothing Worsening Factors: nothing Allergies/Adverse Reactions: Allergies Bee Venom Allergy (Verified 03/24/17 17:39) Coconut Oil Allergy (Verified 03/24/17 17:39) Home Medications: Ambulatory Orders Furosemide Tab [Lasix Tab] 40 mg PO BID 07/28/16 Metoprolol Succinate [Metoprolol Succinate ER] 50 mg PO DAILY 12/18/16 Amlodipine Besylate 5 mg PO DAILY 12/11/17 Bupropion HCl [Wellbutrin Sr] 150 mg PO BID 12/11/17 Metolazone 5 mg PO DAILY PRN 12/11/17 Sacubitril-Valsartan [Entresto 97-103 mg] 1 tab PO BID 12/11/17 Warfarin Sodium 7.5 mg PO BEDTIME 12/11/17 Review of Systems - Review of Systems Constitutional: Denies: chills, fever EENTM: States: no symptoms reported Respiratory: Denies: cough, short of breath, wheezing Cardiology: Denies: chest pain, palpitations Gastrointestinal/Abdominal: States: abdominal pain, other - BRBPR. . Denies: constipation, diarrhea, nausea, vomiting Genitourinary: Denies: dysuria, hematuria Musculoskeletal: States: no symptoms reported Skin: States: no symptoms reported Neurological: States: no symptoms reported Endocrine: States: no symptoms reported Hematologic/Lymphatic: States: no symptoms reported Past Medical History (General) - Patient Medical History Hx Seizures: No Hx Stroke: No Hx Dementia: No Hx Asthma: Yes Hx of COPD: Yes Hx Cardiac Disorders: Yes - Atrial fib Hx Congestive Heart Failure: Yes Hx Pacemaker: Yes Hx Hypertension: Yes Hx Thyroid Disease: No Hx Diabetes: No Hx Gastroesophageal Reflux: No Hx Renal Disease: No Hx Cancer: No Hx of HIV: No Hx Hepatitis C: No Hx MRSA: No MRSA Source:: Wound Surgical History: appendectomy, pacemaker - Vaccination History Hx Tetanus, Diphtheria Vaccination: Yes Hx Influenza Vaccination: Yes Hx Pneumococcal Vaccination: Yes - Social History Hx Tobacco Use: Yes Hx Chewing Tobacco Use: No Hx Alcohol Use: No Hx Substance Use: No Hx Substance Use Treatment: No Hx Depression: No Hx Physical Abuse: No Hx Emotional Abuse: No Hx Suspected Abuse: No - Female History Patient : No Family Medical History - Family History Mother Family History: No Known Living Status: Still Living Hx Cardiac Disease: Yes - parents Hx Family Cancer: Yes - mom Hx Family;Other: copd Physical Exam - Physical Exam General Appearance: Obese - MOD DISTRESS DTP. Eye Exam: bilateral normal Ears, Nose, Throat: hearing grossly normal, normal ENT inspection Neck: non-tender, supple Respiratory: lungs clear, normal breath sounds Cardiovascular/Chest: regular rate, rhythm, no murmur Gastrointestinal/Abdominal: other - OBESE, MOD DIFFUSE TTP, NO G/R/HSM/MASSES Rectal Exam: normal rectal tone, other - NO MASSES, PROSTATE NL, GROSS BLOOD ON EXAM Back Exam: normal inspection, no CVA tenderness Extremity: normal range of motion, other - 1+ PITTING EDEMA Neurologic: alert, normal mood/affect Skin Exam: rash - CANDIDAL ABDOMINAL PANNICULUS Lymphatic: no adenopathy Progress - Progress Progress: 12/11/17 18:27 D/W DR MONZON AND JAMIACA WILL ADMIT. - EKG/XRAY/CT CT: NON DIAGNOSTIC THICKENING DESCENDING COLON. POSSIBLE COLITIS Departure - Departure Clinical Impression: Hematochezia, Warfarin-induced coagulopathy Abdominal pain Qualifiers: Abdominal location: generalized Qualified Code(s): R10.84 - Generalized abdominal pain Time of Disposition: 18:30 Disposition: Admit Patient Condition: Fair Departure Forms: ED Discharge - Pt. Copy, Patient Portal Self Enrollment Instructions: DI for Abdominal Pain-Adult Referrals: Sandy Maher NP [Primary Care Provider] - 1-2 Weeks Home Medications: Ambulatory Orders Furosemide Tab [Lasix Tab] 40 mg PO BID 07/28/16 Metoprolol Succinate [Metoprolol Succinate ER] 50 mg PO DAILY 12/18/16 Amlodipine Besylate 5 mg PO DAILY 12/11/17 Bupropion HCl [Wellbutrin Sr] 150 mg PO BID 12/11/17 Metolazone 5 mg PO DAILY PRN 12/11/17 Sacubitril-Valsartan [Entresto 97-103 mg] 1 tab PO BID 12/11/17 Warfarin Sodium 7.5 mg PO BEDTIME 12/11/17
[2017-12-11] MEDS ORDERED: PROMETHAZINE HCL INJ 25 MG/ML VIAL ONE (15:00)
[2017-12-11] MEDS ORDERED: SODIUM CHLORIDE 0.9% 50ML 50 ML ONE (15:01)
[2017-12-11] MEDS ORDERED: KCL 20 MEQ/NS 1,000 ML IVS PRN (15:41)
--- NOTE | 2017-12-11 16:22 | CT ---
EXAM DESCRIPTION: Abdomen/Pelvis w/o Contrast CLINICAL HISTORY: 47 years Male ABDOMINAL PAIN, BLOOD IN STOOL COMPARISON: None. TECHNIQUE: Contiguous axial images obtained through the abdomen and pelvis without IV contrast. Reformatted images obtained. This exam was performed according to our department optimization program which includes automated exposure control, adjustment of the mA and/or kv according to patient size and/or use of iterative reconstruction technique. FINDINGS: The lung bases are clear. Cardiac pacemaker leads are visualized. The liver appears unremarkable. The spleen and pancreas appear unremarkable. No adrenal masses. The kidneys appear unremarkable. No hydronephrosis or definite ureteral calculi. The gallbladder is visualized. Mild atherosclerotic calcifications. No aneurysmal dilatation of the aorta. Questionable wall thickening in the descending colon and in portions of the sigmoid colon versus incomplete distention. Clinical correlation recommended to exclude the possibility of colitis. No bowel obstruction. The appendix is not visualized. No free pelvic fluid. Fat-containing left inguinal hernia. IMPRESSION: Questionable wall thickening in the descending colon and in portions of the sigmoid colon versus incomplete distention. Clinical correlation recommended to exclude the possibility of colitis. Electronically signed by: Milo Zelaya MD 12/11/2017 4:19 PM CDT
--- NOTE | 2017-12-11 20:27 | HP ---
SUPERVISING PHYSICIAN: Ananth Ramirez MD CHIEF COMPLAINT: Abdominal pain. HISTORY OF PRESENT ILLNESS: Mr. Lara is a 47-year-old, male patient that presented to the Emergency Department today complaining of right sided abdominal pain. He does have a hernia which has been followed in the outpatient setting and was scheduled to have a CT in the morning due to increasing abdominal pain. He notes that today he had gotten up to eat breakfast and started eating breakfast and had some nausea with some emesis and then had a bowel movement and noticed that there was blood in his stools and actually two separate episodes prior to coming to the Emergency Room. He notes that the pain is primarily on the right side. He also reports that he had ongoing chronic diarrhea for well over 6 months or greater. In fact, he notes that last September he was at the hospital in [place] for a pacemaker implantation, developed an infection with some diarrhea and was found to have Clostridium difficile infection. At that time, he was treated in September with oral vancomycin. He denies any recent antibiotic usage. He does have a history of atrial fibrillation and is on chronic Coumadin therapy and was concerned about the blood and increasing abdominal pain which prompted him to present for further evaluation to the Emergency Department. His laboratory studies in the Emergency Room showed hemoglobin 16.5 with hematocrit 40.7 and normal white count with no left shift. Coagulation studies showed INR 4.28. Chemistries showed he was clinically dehydrated with BUN 45, creatinine 2.03. Review of his past medical records and laboratory studies showed that his creatinine baseline is around 1.2 to 1.3. He denied any chest pains, but does have chronic shortness of breath and exertional dyspnea related to his body habitus and chronic obstructive pulmonary disease and he wears oxygen on a p.r.n. basis. He is a current smoker approximately one pack a day. His last colonoscopy was well over 2 years ago apparently at [facility] with the patient being told there were no abnormality findings. His stool occult blood today was positive in the Emergency Room. Urinalysis was pending at time of admission. His vital signs showed he was hemodynamically stable with a pulse 61 , blood pressure 137/59, afebrile at 96.8 with O2 saturation 90% on room air and increasing to 95% on nasal cannula at [address] of the abdomen was completed prior to admission and per radiologic interpretation showed note of question of wall thickening of the descending colon and portions of the sigmoid colon versus incomplete distention. Given the acute onset of abdominal pain with history of hernia and findings on CT concerning for colitis involving the descending and sigmoid colon, the patient is now going to be admitted to the Medical/Surgical Floor for ongoing further treatment and evaluation. PAST MEDICAL HISTORY: 1. Chronic atrial fibrillation on Coumadin therapy. 2. History of chronic renal insufficiency with baseline creatinine around 1.2 to 1.3. 3. History of hypertension. 4. Chronic obstructive pulmonary disease with a longstanding history of tobacco abuse. 5. Morbid obesity. 6. Umbilical hernia, being followed by Dr. Pickens. PAST SURGICAL HISTORY: 1. Appendectomy. 2. Eye surgery. 3. Pacemaker implantation in 2017. CURRENT MEDICATIONS: 1. Bactroban ointment topically as needed b.i.d. 2. Entresto 97-103 1 tablet b.i.d. 3. Wellbutrin 150 mg b.i.d. 4. Amlodipine 5 mg daily. 5. Metolazone 5 mg daily as needed. 6. Lasix 40 mg b.i.d. 7. Metoprolol succinate 50 mg daily. 8. Warfarin 7.5 mg at bedtime. ALLERGIES: NO DRUG ALLERGIES LISTED. The patient lists allergies to bee venom and coconut oil. FAMILY HISTORY: Positive for cancers, hypertension, obesity, diabetes. SOCIAL HISTORY: The patient is disabled and lives in [place], [place]. He had previously worked for [email or web address] for 19 years before becoming disabled. He notes he has smoked for numerous years and currently smokes approximately one pack a day. He denies any illicit drug or alcohol usage. REVIEW OF SYSTEMS: CONSTITUTIONAL: Denies any fevers, chills. HEENT: Denies nasal congestion, sore throat, earaches. RESPIRATORY: Denies any cough, but notes chronic shortness of breath especially with exertional effort, but denies any wheezing. CARDIOVASCULAR: Denies chest pain, palpitations or syncopal episodes. GASTROINTESTINAL: Abdominal pain as noted in history of present illness. He denies any constipation, but has noted over the last several months chronic diarrhea and some nausea and vomiting today with a history of previous C. difficile infection back in September. GENITOURINARY: Denies dysuria, hematuria or other urinary symptoms. NEUROLOGIC: Denies ataxia, seizures or other neurologic deficits. PHYSICAL EXAMINATION: VITAL SIGNS: Temperature 96.8. Pulse 61. Blood pressure 137/59. Respirations 20. Initially satting 91% on room air, improving to 95% on nasal cannula at 2 liters. GENERAL: On examination on the Medical/Surgical Floor,I the patient is notably unkept and morbidly obese, but appears to be comfortable and in nodular. HEENT: Tympanic membranes clear bilaterally. Oropharynx is pink with dry mucous membranes, no lesions. NECK: Supple, nontender with full range of motion. No jugular venous distention noted. RESPIRATORY: Lungs clear, but diminished bilaterally without any obvious rhonchi , wheezes, or rales. CARDIOVASCULAR: Regular rate and rhythm without any appreciable murmurs, gallops, or rubs. ABDOMEN: Obese, diffusely tender to palpation, more so on the right. No guarding or rebound noted. Positive bowel sounds. RECTAL: Exam deferred on admission to the Medical/Surgical Floor. Noted rectal exam per Emergency Room physician showed normal rectal tone, no masses. Prostate within normal limits and notably gross blood on exam. EXTREMITIES: There is no cyanosis, clubbing. There is a trace of edema bilaterally. He moves all extremities ad jazmine. NEUROLOGIC: The patient is alert and oriented times three. Facial features are symmetrical. Extraocular movements are within normal limits. There is no nystagmus noted. INTEGUMENTARY: There is a candidal abdominal panniculus rash which is chronic in appearance. LABORATORY: CBC shows a white count of 7,500 with a hemoglobin 16.5, hematocrit 49.7, platelet count 236,000, differential within normal limits without a left shift. Coagulation studies show INR 4.28, PT-T 66.5. Chemistries showed low potassium of 2.9, elevated cardiac of 39, anion gap 10. BUN 45, creatinine 2.03, blood sugar 125. Liver functions all within normal limits. Calcium normal at 8.7. Amylase and lipase pending. He had one stool occult blood in the Emergency Room on rectal exam that was positive. Urinalysis pending at time of admission. MICROBIOLOGY: Stool cultures pending. C. difficile pending. Lactoferrin pending. RADIOLOGY: Initially in the Emergency Department, he had a abdominopelvic CT without contrast and per radiologic interpretation, there was questionable wall thickening in the descending colon and portions of the sigmoid colon versus incomplete distention. Also of noted was fat containing left inguinal hernia. No free pelvic fluid. Gallbladder was visualized with no mention of abnormalities. Please refer to that full report for details. ASSESSMENT: 1. Acute right sided abdominal pain with CT findings concerning for descending and sigmoid colon colitis with the patient having right sided abdominal pain. 2. Inguinal hernia, fat containing, without any complications which appears to be chronic in nature, followed in the outpatient setting by Dr. Pickens. 3. Hematochezia with past history of Clostridium difficile infection within the last year with no past history of gastrointestinal complications and colonoscopy within the last two years. Stool cultures and Clostridium difficile are pending. 4. Electrolyte imbalance with hypokalemia, likely due to chronic diarrhea in conjunction with Lasix. 5. Chronic obstructive pulmonary disease in a chronic smoker with mention of exacerbation. 6. Morbid obesity with a body mass index of 50. 7. Nicotine addiction in a chronic smoker, currently smoking approximately a pack a day. 8. Chronic atrial fibrillation with controlled ventricular rate on admission with the patient on chronic Coumadin therapy showing an elevated INR. 9. Chronic renal insufficiency with acute prerenal azotemia from likely underlying dehydration requiring initiation of parenteral fluids and close monitoring. PLAN: The patient will be admitted to the Medical/Surgical Floor for ongoing treatment and evaluation. I will plan to get a consultation with Dr. Fitzgerald in the morning. He will be NPO tonight. He was started on antibiotics to include Levaquin and Flagyl initially with further management pending findings in the morning. We will await cultures on stool as well as C. difficile on stool and target antibiotic therapy as needed. We will plan to do several C. difficile specimens if he continues to have diarrhea to help rule out any C. difficile colitis. We will start him on IV fluids to help with his dehydration status with D5 half normal saline with 30 of potassium tonight with repeat of his laboratory studies in the morning. We will anticipate his length of stay to be at 2 to 3 days. Until clinically stable, we will continue to monitor the patient closely and treat appropriately. #[id number] [facility]
[2017-12-11] MEDS ORDERED: SODIUM CHLORIDE 0.9% (FLUSH) 10 ML SYG IV PRN (21:22)
[2017-12-11] MEDS ORDERED: MORPHINE SULFATE INJ 10 MG/ML VIAL IV PRN (21:22)
[2017-12-11] MEDS ORDERED: IV SET AND CAP CHANGE INJ INJ SCH (21:30)
[2017-12-11] MEDS ORDERED: levoFLOXacin 500MG IV 100 ML IVPB ONE (21:42)
[2017-12-11] MEDS: levoFLOXacin 500MG IV 500 MG in PREMIX BAG 1 BAG IVPB SCH (21:52)
[2017-12-11] MEDS: KCL 30MEQ/D5 1/2NS 1,000 ML IVS PRN (21:52)
[2017-12-11] MEDS: SACUBITRIL VALSARTAN PO SCH (21:53)
[2017-12-11] MEDS ORDERED: metroNIDAZOLE IV PREMIX 500MG 100 ML IVPB ONE (23:27)
[2017-12-11] MEDS: metroNIDAZOLE IV PREMIX 500MG 500 MG in PREMIX BAG 1 BAG IVPB SCH (23:29)
[2017-12-12] MEDS ORDERED: metroNIDAZOLE IV PREMIX 500MG 100 ML IVPB ONE ×3 (06:34→19:35)
[2017-12-12] MEDS: metroNIDAZOLE IV PREMIX 500MG 500 MG in PREMIX BAG 1 BAG IVPB SCH ×3 (06:38→23:22)
[2017-12-12] MEDS: METOPROLOL SUCCINATE XL 25 MG TAB PO SCH (09:03)
[2017-12-12] MEDS: amLODIPine BESYLATE 5 MG TAB PO SCH (09:03)
[2017-12-12] MEDS: KCL 30MEQ/D5 1/2NS 1,000 ML IVS PRN ×2 (09:15→19:44)
[2017-12-12] MEDS: SACUBITRIL VALSARTAN PO SCH ×2 (09:16→21:13)
--- NOTE | 2017-12-12 11:34 | CONS ---
DATE OF CONSULTATION: 12/12/17 REFERRING PHYSICIAN: Hospitalist Service HISTORY OF PRESENT ILLNESS: The patient is a 47-year-old male who was admitted for right sided abdominal pain and blood per rectum. He has also had nausea and vomiting, but there was no blood in his vomitus and it was not coffee ground. The patient has had diarrhea for over 6 months and there was some thought that he had C. difficile which was treated with vancomycin. He has a history of atrial fibrillation and he is on warfarin and has had a pacemaker. He also has a history of congestive heart failure. At this time, he denies chest pain or any increase in his shortness of breath. He does have know chronic obstructive pulmonary disease. He wears oxygen at home. He continues to smoke a pack a day, which is less than previously. He did have a colonoscopy somewhere over one year ago at [facility]. He is currently minimally tender and is hungry. PAST MEDICAL HISTORY: 1. Hypertension. 2. Chronic renal insufficiency. 3. Morbid obesity. 4. Umbilical hernia. 5. Atrial fibrillation. 6. Congestive heart failure. 7. Chronic obstructive pulmonary disease. PAST SURGICAL HISTORY: 1. Appendectomy. 2. Eye surgery. 3. Pacemaker placement. CURRENT MEDICATIONS: 1. Bactroban. 2. Entresto. 3. Wellbutrin. 4. Amlodipine. 5. Metolazone. 6. Lasix. 7. Metoprolol. 8. Coumadin 10 mg daily on Ikawegg-Hkglqotyy-Mfvzcwgg-Tuesday and 5 mg on Meubuy-Ziteoxndc-Flnnoh. ALLERGIES: NO KNOWN DRUG ALLERGIES, although there is a history of allergy to bee venom and coconut oil. FAMILY HISTORY: Positive for diabetes, obesity, hypertension, malignancies. SOCIAL HISTORY: The patient is disabled. He has greater than a 40 pack year history of tobacco abuse. He denies alcohol use or previous use of drugs. REVIEW OF SYSTEMS: Unremarkable except as in the history of present illness. PHYSICAL EXAMINATION: GENERAL: The patient is awake, alert, cooperative, in mild distress. VITAL SIGNS: The patient is currently afebrile, normotensive. Respiratory rate is somewhat increased. NECK: Without adenopathy. CHEST: Equal breath sounds bilaterally. HEART: Regular rate and rhythm. ABDOMEN: Soft, distended, obese with mild tenderness on the right side. No guarding or masses. Bowel sounds are positive. RECTAL: Deferred. Rectal exam in the Emergency Room revealed normal rectal tone without masses. Prostate was within normal limits. There was gross blood. EXTREMITIES: Without cyanosis, clubbing. There is trace bilateral pedal edema. LABORATORY: PT this morning is 39.8, down from 47.4. INR is 3.5, down from 4.2. Chemistries reveal potassium 3.0, creatinine 1.78 down from 2.0. Liver function tests within normal limits. Hemoglobin is down from 16.5 to 16.1. White count 6.2 from 7.5. Platelet count 186,000, segmented neutrophils 57. There is no urine noted. RADIOLOGY: Questionable wall thickening in the descending colon and the sigmoid colon. There is a fat containing left inguinal hernia. There was nothing in the gallbladder that showed a problem. ASSESSMENT: 1. Right sided abdominal pain. 2. Abnormal CT considering the left and sigmoid colon. 3. Left inguinal hernia. 4. Blood per rectum with a prolonged INR. 5. Hypokalemia. 6. Chronic obstructive pulmonary disease. 7. Atrial fibrillation with a pacemaker. 8. Chronic renal insufficiency, somewhat bumped probably secondary to mild dehydration. PLAN: Allow clear liquids. Continue gentle rehydration. Allow the INR to come to an appropriate number and see if his blood per rectum stops. We also need to obtain his colonoscopy report from [facility]. I will follow this patient with you. #[id number] [facility]
[2017-12-12] MEDS: IPRATROPIUM/ALBUTEROL 3 ML VIAL NEB SCH ×3 (12:52→20:35)
--- NOTE | 2017-12-12 14:14 | PN ---
SUPERVISING PHYSICIAN: Jey Meza MD DATE: 12/12/17 SUBJECTIVE: The patient still states he had a little bit of pain, but he has not had anymore bowel movements and therefore has not had any blood in his stool. Overall, he feels okay. OBJECTIVE: VITAL SIGNS: Blood pressure 127/72. Heart rate 90. Respiratory rate 18. Temperature 97.8. Oxygen saturation 96%. GENERAL: Mr. Lara is a 47-year-old male patient in no active distress. NEUROLOGIC: Alert and oriented. LUNGS: Clear to auscultation bilaterally, but diminished in the bases. CARDIOVASCULAR: Regular rate and rhythm. Normal S1, S2. ABDOMEN: Obese, soft. Positive bowel sounds. He does have some tenderness to palpation mainly on the left. GENITOURINARY: Deferred. EXTREMITIES: Lower extremities with positive edema. LABORATORY: Normal white count. Stable hemoglobin at 16.1. Chemistries show sodium 141, potassium 3.0, chloride 96, carbon dioxide 38, BUN 34, creatinine 1.78, glucose 117, calcium 8.5. ASSESSMENT: 1. Possible colitis. 2. Inguinal hernia. 3. Hematochezia. 4. Hypokalemia. 5. Chronic obstructive pulmonary disease. 6. Morbid obesity. 7. Coumadin coagulopathy. PLAN: Continue to monitor. Holding Coumadin. I will start him on a clear liquid diet. If he does okay with this and does not have any active bleeding, he could probably go home tomorrow. Dr. Fitzgerald has seen the patient as well and wants to continue him on antibiotics and check a urinalysis as well as start on a clear liquid diet. We will reevaluate labs in the morning as well. #[id number] [facility]
[2017-12-12] MEDS: PANTOPRAZOLE SODIUM IV 40 MG VIAL IV SCH ×2 (17:28→21:13)
[2017-12-12] MEDS ORDERED: levoFLOXacin 500MG IV 100 ML IVPB ONE (19:32)
[2017-12-12] MEDS: levoFLOXacin 500MG IV 500 MG in PREMIX BAG 1 BAG IVPB SCH (21:15)
[2017-12-13] MEDS ORDERED: metroNIDAZOLE IV PREMIX 500MG 100 ML IVPB ONE (04:26)
[2017-12-13] MEDS: KCL 30MEQ/D5 1/2NS 1,000 ML IVS PRN (05:50)
[2017-12-13] MEDS: metroNIDAZOLE IV PREMIX 500MG 500 MG in PREMIX BAG 1 BAG IVPB SCH (07:06)
[2017-12-13] MEDS: METOPROLOL SUCCINATE XL 25 MG TAB PO SCH (08:49)
[2017-12-13] MEDS: amLODIPine BESYLATE 5 MG TAB PO SCH (08:49)
[2017-12-13] MEDS: PANTOPRAZOLE SODIUM IV 40 MG VIAL IV SCH (08:50)
[2017-12-13] MEDS: SACUBITRIL VALSARTAN PO SCH ×2 (08:50→21:36)
[2017-12-13] MEDS: IPRATROPIUM/ALBUTEROL 3 ML VIAL NEB SCH ×4 (08:50→21:43)
--- NOTE | 2017-12-13 11:15 | PN ---
SUPERVISING PHYSICIAN: Jey Meza MD DATE: 12/13/17 SUBJECTIVE: The patient feels better today. His abdominal pain is near completely resolved at this time. Dr. Fitzgerald has seen the patient as well. He has had no nausea or vomiting, no fever or chills. His appetite is back and he is willing to eat. OBJECTIVE: VITAL SIGNS: Blood pressure 128/71. Heart rate 68. Respiratory rate 20. Temperature 98.4. Oxygen saturation 96%. GENERAL: Mr. Lara is a 47-year-old male patient in no distress. NEUROLOGIC: Alert and oriented. LUNGS: A little bit diminished in the bases, but otherwise clear to auscultation bilaterally. CARDIOVASCULAR: Regular rate and rhythm. Normal S1, S2. ABDOMEN: Soft, obese. Positive bowel sounds. No evidence of tenderness to palpation at this time. EXTREMITIES: Lower extremities with no significant edema. Capillary refill is less than 2 seconds. LABORATORY: Normal white count of 6.8, hemoglobin stable at 15.5, platelet count 182. INR down to 2.37 which is therapeutic for his current diagnosis of underlying atrial fibrillation. Sodium 136, potassium 3.3, chloride 98, CO2 34 , BUN 18, creatinine 1.5, calcium 8.3, glucose 113. ASSESSMENT: 1. Possible colitis, improved. 2. Inguinal hernia. 3. Hematochezia, either improved or resolved as he not had any repeated episodes. 4. Hypokalemia, improved, but not quite resolved. 5. Chronic obstructive pulmonary disease. 6. Morbid obesity. 7. Coumadin coagulopathy, improved. 8. Diabetes, stable. 9. Acute kidney injury, improved. PLAN: I am going to discontinue his antibiotics today. I have spoken with Dr. Fitzgerald and at this point with a normal white count and clinical improvement, we are discontinuing the antibiotics. I am also going to resume his warfarin as he is down to a therapeutic range. However, I am going start him at 5 mg because he has been on Levaquin and the interaction with warfarin could increase his INR if we are not careful. I am discontinuing his IV fluids and resuming his Lasix as well. His diet will be advanced to an 1800 ADA today. If he remains stable overnight, we will probably discharge him tomorrow. #[id number] [facility]
[2017-12-13] MEDS: WARFARIN SODIUM 5 MG TAB PO SCH (11:50)
[2017-12-13] MEDS ORDERED: metroNIDAZOLE 500 MG TAB PO SCH (15:00)
[2017-12-13] MEDS: PANTOPRAZOLE SODIUM TAB 40 MG PO SCH (16:49)
[2017-12-13] MEDS: POTASSIUM CHLORIDE 20 MEQ TAB PO SCH (16:49)
[2017-12-13] MEDS: FUROSEMIDE 40 MG TAB PO SCH (16:49)
[2017-12-13] MEDS ORDERED: ACETAMINOPHEN 500 MG TAB PO PRN (20:27)
[2017-12-13] MEDS ORDERED: levoFLOXacin 500 MG TAB PO SCH (21:00)
[2017-12-13] MEDS: NYSTATIN POWDER 15GM BTTL TOP SCH (21:01)
[2017-12-13] MEDS: SODIUM CHLORIDE 0.9% (FLUSH) 10 ML SYG IV SCH (21:37)
[2017-12-14] MEDS: PANTOPRAZOLE SODIUM TAB 40 MG PO SCH (06:33)
[2017-12-14] MEDS: POTASSIUM CHLORIDE 20 MEQ TAB PO SCH (07:23)
[2017-12-14] MEDS: IPRATROPIUM/ALBUTEROL 3 ML VIAL NEB SCH ×2 (09:45→13:20)
[2017-12-14] MEDS: SACUBITRIL VALSARTAN PO SCH (10:13)
[2017-12-14] MEDS: amLODIPine BESYLATE 5 MG TAB PO SCH (10:14)
[2017-12-14] MEDS: SODIUM CHLORIDE 0.9% (FLUSH) 10 ML SYG IV SCH (10:14)
[2017-12-14] MEDS: FUROSEMIDE 40 MG TAB PO SCH (10:14)
[2017-12-14] MEDS: METOPROLOL SUCCINATE XL 25 MG TAB PO SCH (10:14)
[2017-12-14] MEDS: NYSTATIN POWDER 15GM BTTL TOP SCH (10:16)
[2017-12-14 10:23] VITALS: BP 134/89; TEMP 97.8; O2SAT 99
[2017-12-14] MEDS: WARFARIN SODIUM 5 MG TAB PO SCH (12:42)
--- NOTE | 2017-12-14 19:17 | DS ---
SUPERVISING PHYSICIAN: Jey Meza M.D. ADMISSION DIAGNOSIS: 1. Acute right sided abdominal pain concerning for colitis. 2. Inguinal hernia. 3. Hematochezia. 4. Electrolyte imbalance. 5. Chronic obstructive pulmonary disease. 6. Morbid obesity. 7. Nicotine dependency. 8. Chronic atrial fibrillation on Coumadin therapy. 9. Coumadin coagulopathy. 10. Renal insufficiency. DISCHARGE DIAGNOSIS: 1. Acute right sided abdominal pain concerning for colitis. 2. Inguinal hernia. 3. Hematochezia. 4. Electrolyte imbalance. 5. Chronic obstructive pulmonary disease. 6. Morbid obesity. 7. Nicotine dependency. 8. Chronic atrial fibrillation on Coumadin therapy. 9. Coumadin coagulopathy. 10. Renal insufficiency. HOSPITAL COURSE: This is a 47 year-old male patient who came to the Emergency Room with right sided abdominal pain. He has a hernia as well. It has been followed in the outpatient setting but not necessarily meeting criteria for surgical intervention at this time. He did have a CT of the abdomen because of increasing pain. In the Emergency Room, this was done and he was noted to have an area consistent with colitis. He also has Clostridium Difficile infection last September but it was checked here and he did not have C-Diff. His INR was elevated at 4.28, creatinine was elevated at 2.03. Hemoglobin was actually 16.5 and he had complained of some bloody stools. For all of these reasons, he was admitted and had a consultation with Dr. Fitzgerald as well. He was placed on antibiotics for colitis. Over the course of his admission which was about 3 days, the patient gradually improved as far as pain was concerned. He was initially NPO, then was moved to liquids and then to an 1800 ADA diet. He tolerated the food without any problems. His abdominal pain improved as well. White blood cell count was normal. He did have a stool which had some blood in it, however his hemoglobin remained stable the entire time. We got a colonoscopy and EGD study from his primary care physician's office and this was done about 4 years ago. It showed some gastritis and some diverticulosis at that point. He was placed on Protonix b.i.d. The day of discharge the patient was in stable condition with no abdominal pain, tolerating diet without difficulties. His INR had actually gone to 1.89, therefore his Warfarin was resumed. His antibiotics were discontinued the day before after speaking with Dr. Fitzgerald as his with was normal. There is a concern that he possibly has gastritis and this is causing some bleeding due to the fact his INR was greatly elevated. I discussed with his his Warfarin and he does not really know the dose that he normally takes because he says home health takes care of his medicines for him. We have actually spoken with home health and they say he is on 7.5 mg daily, although he had given us information about 10 mg and 5 mg alternation of days with the Warfarin. Therefore will resume his Warfarin and home health with recheck his INR in a week. He has also been instructed that he needs to probably have another colonoscopy as an outpatient and his primary care physician will set this up. In the meantime, I have written for Protonix b.i.d. prescription for the next 30 days until he is reevaluated by his primary care doctor. Discharge condition is stable. Discharge diet is 1800 ADA diet. Activity as tolerated. Followup appointment is with Angeli Maher NP on December 20 at 11:30. DISCHARGE MEDICATIONS: 1. Protonix 40 mg p.o. b.i.d. for 30 days. #[id number] [facility]
== END 2017-12-14 14:10 | disposition home or self-care (01) | DRG 391 ==
LOC: ER 14:26 → OBSVTOIN 20:26 → MS 20:26
PROVIDERS: ADMIT Nurse Practitioner Family; ATTEND Nurse Practitioner
DX: K52.9 Noninfective gastroenteritis and colitis, unspecified (principal); K29.71 Gastritis, unspecified, with bleeding; I13.0 Hypertensive heart and chronic kidney disease with heart failure and stage 1 through stage 4 chronic kidney disease, or unspecified chronic kidney disease; Z68.43 Body mass index [BMI] 50.0-59.9, adult; N17.9 Acute kidney failure, unspecified; K40.90 Unilateral inguinal hernia, without obstruction or gangrene, not specified as recurrent; J44.9 Chronic obstructive pulmonary disease, unspecified; F17.210 Nicotine dependence, cigarettes, uncomplicated; I48.2 Chronic atrial fibrillation; I50.9 Heart failure, unspecified; N18.9 Chronic kidney disease, unspecified; E87.6 Hypokalemia; E86.0 Dehydration; E66.01 Morbid (severe) obesity due to excess calories; Z95.0 Presence of cardiac pacemaker; Z79.01 Long term (current) use of anticoagulants; Z99.81 Dependence on supplemental oxygen

== ENCOUNTER → 2017-12-19 | Outpatient (CLI) | payer MEDICARE, MEDICAID | LOC: NC 11:20 | PROVIDERS: ATTEND General Practice | DX: I48.91 Unspecified atrial fibrillation (principal) ==

== ENCOUNTER 2017-12-28 20:03 | Emergency (ER) | payer MEDICARE, MEDICAID ==
--- NOTE | 2017-12-28 20:30 | ED.PDOC ---
History of Present Illness - General Time Seen by Provider: 12/28/17 20:26 Source: patient, RN notes reviewed, Vital Signs reviewed, EMS notes reviewed Additional Information: 47 YEAR OLD PRESENTS WITH LEFT FOOT PAIN SPONTANEOUS ONSET SINCE THIS MORNING NO FEVER NO HISTORY OF GOUT THE WHOLE FOOT HURTS LIS UPON WEIGHT BEARING - History of Present Illness Timing/Duration: 24 hours Severity: moderate Improving Factors: nothing Worsening Factors: nothing Associated Symptoms: denies symptoms Allergies/Adverse Reactions: Allergies Bee Venom Allergy (Verified 03/24/17 17:39) Coconut Oil Allergy (Verified 03/24/17 17:39) Home Medications: Ambulatory Orders Furosemide Tab [Lasix Tab] 40 mg PO BID 07/28/16 Metoprolol Succinate [Metoprolol Succinate ER] 50 mg PO DAILY 12/18/16 Amlodipine Besylate 5 mg PO DAILY 12/11/17 Bupropion HCl [Wellbutrin Sr] 150 mg PO BID 12/11/17 Metolazone 5 mg PO DAILY PRN 12/11/17 Sacubitril-Valsartan [Entresto 97-103 mg] 1 tab PO BID 12/11/17 Warfarin Sodium 7.5 mg PO BEDTIME 12/11/17 Pantoprazole Tablet [Protonix] 40 mg PO BIDAC #60 tab 12/14/17 Acetamin W/Cod #3 Tab [Tylenol w/CODEINE #3] 1 ea PO Q6HR PRN #40 tab 12/28/17 Review of Systems - Review of Systems Constitutional: States: no symptoms reported EENTM: States: no symptoms reported Respiratory: States: no symptoms reported Cardiology: States: no symptoms reported Gastrointestinal/Abdominal: States: no symptoms reported Genitourinary: States: no symptoms reported Musculoskeletal: States: no symptoms reported Skin: States: no symptoms reported Neurological: States: no symptoms reported Endocrine: States: no symptoms reported Past Medical History (General) - Patient Medical History Hx Seizures: No Hx Stroke: Yes - Pt thinks he has had stroke before but unsure Hx Dementia: No Hx Asthma: Yes - Had since kid Hx of COPD: Yes Hx Cardiac Disorders: Yes - Atrial fib Hx Congestive Heart Failure: No Hx Pacemaker: Yes Hx Hypertension: Yes Hx Thyroid Disease: No Hx Diabetes: No Hx Gastroesophageal Reflux: No Hx Renal Disease: No Hx Cancer: No Hx of HIV: No Hx Hepatitis C: No Hx MRSA: No MRSA Source:: Wound - Vaccination History Hx Tetanus, Diphtheria Vaccination: Yes Hx Influenza Vaccination: Yes Hx Pneumococcal Vaccination: Yes - Social History Hx Tobacco Use: Yes Hx Chewing Tobacco Use: No Hx Alcohol Use: No Hx Substance Use: No Hx Substance Use Treatment: No Hx Depression: No Hx Physical Abuse: No Hx Emotional Abuse: No Hx Suspected Abuse: No - Female History Patient : No Family Medical History - Family History Mother Family History: No Known Living Status: Still Living Hx Cardiac Disease: Yes - parents Hx Family Cancer: Yes - mom Hx Family;Other: copd Physical Exam - Physical Exam General Appearance: Alert, Comfortable Eye Exam: bilateral normal Ears, Nose, Throat: hearing grossly normal, normal ENT inspection, normal pharynx Neck: non-tender, full range of motion, supple Respiratory: chest non-tender, lungs clear, normal breath sounds, no respiratory distress, no accessory muscle use Cardiovascular/Chest: normal peripheral pulses, regular rate, rhythm, no edema, no gallop Gastrointestinal/Abdominal: normal bowel sounds, non tender, soft, no organomegaly, no pulsatile mass Back Exam: normal inspection, no CVA tenderness, no vertebral tenderness Extremity: normal inspection, no pedal edema 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 nml as tested, no motor/sensory deficits, alert Progress - Results/Orders Results/Orders: x ray reviewed no osseous abnormality noted Departure - Departure Clinical Impression: Sprain of left ankle or foot Time of Disposition: 21:03 Disposition: Discharge to Home or Self Care Condition: Good Activity: increase activity as tolerated Referrals: Sandy Maher NP [Primary Care Provider] - 1-2 Weeks Prescriptions: Acetamin W/Cod #3 Tab [Tylenol w/CODEINE #3] 1 ea PO Q6HR PRN #40 tab PRN Reason: Mild To Moderate Pain Home Medications: Ambulatory Orders Furosemide Tab [Lasix Tab] 40 mg PO BID 07/28/16 Metoprolol Succinate [Metoprolol Succinate ER] 50 mg PO DAILY 12/18/16 Amlodipine Besylate 5 mg PO DAILY 12/11/17 Bupropion HCl [Wellbutrin Sr] 150 mg PO BID 12/11/17 Metolazone 5 mg PO DAILY PRN 12/11/17 Sacubitril-Valsartan [Entresto 97-103 mg] 1 tab PO BID 12/11/17 Warfarin Sodium 7.5 mg PO BEDTIME 12/11/17 Pantoprazole Tablet [Protonix] 40 mg PO BIDAC #60 tab 12/14/17 Acetamin W/Cod #3 Tab [Tylenol w/CODEINE #3] 1 ea PO Q6HR PRN #40 tab 12/28/17
[2017-12-28] MEDS ORDERED: KETOROLAC TROMETHAMINE INJ 60 MG/2 ML VIAL IM ONE (20:31)
[2017-12-28] MEDS ORDERED: DEXAMETHASONE INJ 10 MG/ML VIAL IM ONE (20:31)
--- NOTE | 2017-12-28 20:47 | RAD ---
Examination: XR FOOT 3 OR MORE VIEWS dated 12/28/2017 8:31 PM CDT History: PAIN Comparison: None Technique: Three views of the left foot FINDINGS: No acute fracture or dislocation. Alignment is within normal limits. Small plantar and posterior calcaneal spurs. IMPRESSION: No acute osseous abnormality. Electronically signed by: Jey Carreon MD 12/28/2017 8:45 PM CDT
[2017-12-28 22:02] VITALS: BP 147/71; TEMP 98.5; O2SAT 98
== END 2017-12-28 21:55 | disposition home or self-care (01) ==
LOC: ER 20:03
DX: S93.402A Sprain of unspecified ligament of left ankle, initial encounter (principal); J44.9 Chronic obstructive pulmonary disease, unspecified; I48.91 Unspecified atrial fibrillation; I10 Essential (primary) hypertension; Z95.0 Presence of cardiac pacemaker; Z87.891 Personal history of nicotine dependence; Z79.01 Long term (current) use of anticoagulants; X58.XXXA Exposure to other specified factors, initial encounter
CPT/HCPCS: 73630; J1100; J1885

== ENCOUNTER → 2017-12-29 | Outpatient (CLI) | payer MEDICARE, MEDICAID | LOC: NC 12:19 | PROVIDERS: ATTEND General Practice | DX: I48.91 Unspecified atrial fibrillation (principal) ==

== ENCOUNTER → 2018-01-04 | Outpatient (CLI) | payer MEDICARE, MEDICAID | LOC: NC 10:22 | PROVIDERS: ATTEND General Practice | DX: I48.91 Unspecified atrial fibrillation (principal) ==

== ENCOUNTER → 2018-01-12 | Outpatient (CLI) | payer MEDICARE, MEDICAID | LOC: NC 11:14 | PROVIDERS: ATTEND General Practice | DX: I48.91 Unspecified atrial fibrillation (principal) ==

== ENCOUNTER → 2018-01-19 | Outpatient (CLI) | payer MEDICARE, MEDICAID | LOC: NC 12:13 | PROVIDERS: ATTEND General Practice | DX: I48.91 Unspecified atrial fibrillation (principal) ==

== ENCOUNTER → 2018-02-21 | Outpatient (CLI) | payer MEDICARE, MEDICAID | LOC: NC 11:29 | PROVIDERS: ATTEND General Practice | DX: I48.2 Chronic atrial fibrillation (principal); I40.9 Acute myocarditis, unspecified ==

== ENCOUNTER → 2018-03-03 | Outpatient (CLI) | payer MEDICARE, MEDICAID | LOC: NC 08:56 | PROVIDERS: ATTEND General Practice | DX: I48.2 Chronic atrial fibrillation (principal) ==

== ENCOUNTER 2018-03-17 20:44 | Emergency (ER) | payer MEDICARE, MEDICAID ==
[2018-03-17] MEDS ORDERED: IPRATROPIUM/ALBUTEROL 3 ML VIAL NEB ONE ×2 (20:51→21:00)
[2018-03-17] MEDS ORDERED: POVIDONE IODINE 10 % 15 ML UD TOP ONE (21:04)
--- NOTE | 2018-03-17 21:57 | ED.PDOC ---
History of Present Illness - General Chief Complaint: Laceration Stated Complaint: Cut right fore finger with knife Time Seen by Provider: 03/17/18 21:55 Source: patient, family Exam Limitations: no limitations - History of Present Illness Initial Comments: patient comes in with laceration to his right index finger with a kitchen knife that he was using to open a package. Patient however is on Coumadin and could not get the bleeding to stop. Patient states it happened directly prior to arrival but he hasn't placed about 10 rolls of toilet paper over the area with pressure and attempt to slow down the bleeding. He does have some shortness of breath and wheezing but he has COPD and missed his nighttime dose of DuoNeb. Patient was in his usual state of health prior to the incident. Patient has had a tetanus shot within the last year. He has no allergies to medications. Patient takes the Coumadin for atrial fibrillation. Timing/Duration: just prior to arrival Severity: severe Location: hands Improving Factors: other - pressure Worsening Factors: movement Associated Symptoms: denies symptoms Allergies/Adverse Reactions: Allergies Bee Venom Allergy (Verified 03/17/18 20:59) Coconut Oil Allergy (Verified 03/17/18 20:59) Home Medications: Ambulatory Orders Furosemide Tab [Lasix Tab] 40 mg PO BID 07/28/16 Metoprolol Succinate [Metoprolol Succinate ER] 50 mg PO DAILY 12/18/16 Amlodipine Besylate 5 mg PO DAILY 12/11/17 Bupropion HCl [Wellbutrin Sr] 150 mg PO BID 12/11/17 Metolazone 5 mg PO DAILY PRN 12/11/17 Sacubitril-Valsartan [Entresto 97-103 mg] 1 tab PO BID 12/11/17 Warfarin Sodium 7.5 mg PO BEDTIME 12/11/17 Pantoprazole Tablet [Protonix] 40 mg PO BIDAC #60 tab 12/14/17 Acetamin W/Cod #3 Tab [Tylenol w/CODEINE #3] 1 ea PO Q6HR PRN #40 tab 12/28/17 Review of Systems - Review of Systems Constitutional: States: no symptoms reported. Denies: chills, diaphoresis, fever, weakness EENTM: States: no symptoms reported Respiratory: States: see HPI, short of breath, wheezing Cardiology: States: no symptoms reported Gastrointestinal/Abdominal: States: no symptoms reported. Denies: abdominal pain, diarrhea, nausea, vomiting Skin: States: see HPI Past Medical History (General) - Patient Medical History Hx Seizures: No Hx Stroke: Yes - Pt thinks he has had stroke before but unsure Hx Dementia: No Hx Asthma: Yes - Had since kid Hx of COPD: Yes Hx Cardiac Disorders: Yes - Atrial fib Hx Congestive Heart Failure: No Hx Pacemaker: Yes Hx Hypertension: Yes Hx Thyroid Disease: No Hx Diabetes: No Hx Gastroesophageal Reflux: No Hx Renal Disease: No Hx Cancer: No Hx of HIV: No Hx Hepatitis C: No Hx MRSA: No MRSA Source:: Wound - Vaccination History Hx Tetanus, Diphtheria Vaccination: Yes Hx Influenza Vaccination: Yes Hx Pneumococcal Vaccination: Yes Immunizations Up to Date: Yes - Social History Hx Tobacco Use: Yes Hx Chewing Tobacco Use: No Hx Alcohol Use: No Hx Substance Use: No Hx Substance Use Treatment: No Hx Depression: No Feels Threatened In Home Enviroment: No Feels Threatened In a Relationship: No Hx Physical Abuse: No Hx Emotional Abuse: No Hx Suspected Abuse: No - Activities of Daily Living Hospice Agency (if applicable):: None - Female History Patient : No - Triage Comment ED Triage Comment: Pt states that he was opening a bag of chicken tenders and cut his right fore finger. Tried applying pressure but soaked through multiple layers of bandages before coming in. Family Medical History - Family History Mother Family History: No Known Living Status: Still Living Hx Cardiac Disease: Yes - parents Hx Family Cancer: Yes - mom Hx Family;Other: copd Physical Exam - Physical Exam General Appearance: Other - holding finger with bandage soaked through Eyes, Ears, Nose, Throat Exam: PERRL/EOMI, normal ENT inspection Neck: non-tender, full range of motion, supple Cardiovascular/Chest: normal peripheral pulses, regular rate, rhythm, no edema, no gallop, no JVD, no murmur Respiratory: chest non-tender, no respiratory distress, no accessory muscle use , wheezing Gastrointestinal/Abdominal: normal bowel sounds, non tender, soft, no organomegaly, no pulsatile mass Extremity: other - Right index finger with 1 cm U shaped laceration to the finger tip. through the skin and involving subcutaneous tissue Progress - Progress Progress: 03/17/18 21:59 patient had rapidly bleeding finger with fairly superficial laceration secondary to the Coumadin. On arrival area was unwrapped and pressure was placed at the tip of the finger. Bleeding was under control area at the base of his finger was cleaned with Betadine thoroughly and digital block was performed with 2 cc of 1% lidocaine. 2 additional cc of lidocaine was then placed at the tip of the finger at the area of laceration with good anesthesia obtained. - EKG/XRAY/CT CT Ordered: No Procedures - Laceration/Wound Repair Right Finger Wound Length (cm): 1 Wound's Depth, Shape: superficial, flap Wound Explored: no foreign body removed Irrigated w/ Saline (cc's): 50 Betadine Prep?: Yes Anesthesia: 1% Lidocaine Volume Anesthetic (cc's): 4 - 2 for digital block/2 soaked guaze at lesion Wound Debrided: minimal Wound Repaired With: sutures Suture Size/Type: 6:0, nylon Number of Sutures: 4 Layer Closure?: No Departure - Departure Clinical Impression: Laceration COPD (chronic obstructive pulmonary disease) Qualifiers: COPD type: unspecified COPD Qualified Code(s): J44.9 - Chronic obstructive pulmonary disease, unspecified Disposition: Discharge to Home or Self Care Condition: Good Departure Forms: ED Discharge - Pt. Copy, Patient Portal Self Enrollment Instructions: DI for Laceration Repair, DI for Laceration Repair -- Simple Diet: low salt diet Activity: increase activity as tolerated Referrals: Dylan Pickens MD [Primary Care Provider] - 1-2 Weeks Home Medications: Ambulatory Orders Furosemide Tab [Lasix Tab] 40 mg PO BID 07/28/16 Metoprolol Succinate [Metoprolol Succinate ER] 50 mg PO DAILY 12/18/16 Amlodipine Besylate 5 mg PO DAILY 12/11/17 Bupropion HCl [Wellbutrin Sr] 150 mg PO BID 12/11/17 Metolazone 5 mg PO DAILY PRN 12/11/17 Sacubitril-Valsartan [Entresto 97-103 mg] 1 tab PO BID 12/11/17 Warfarin Sodium 7.5 mg PO BEDTIME 12/11/17 Pantoprazole Tablet [Protonix] 40 mg PO BIDAC #60 tab 12/14/17 Acetamin W/Cod #3 Tab [Tylenol w/CODEINE #3] 1 ea PO Q6HR PRN #40 tab 12/28/17 Additional Instructions: keep bandage on laceration for 24 hours. Afterwards keep clean with warm soapy water once a day and pat dry. Do not remove any scab tissue. Keep covered and clean. Follow-up on Tuesday with PCP. Return to ER for bleeding, increasing pain, redness, or purulence. Follow-up in 7-10 days for suture removal.
[2018-03-17 22:11] VITALS: TEMP 98.6
[2018-03-17] MEDS ORDERED: ACETAMINOPHEN W/COD #3 TAB 1 EA TAB PO ONE (22:21)
[2018-03-17 22:37] VITALS: BP 141/98; O2SAT 92
== END 2018-03-17 22:34 | disposition home or self-care (01) ==
LOC: ER 20:44
DX: S61.210A Laceration without foreign body of right index finger without damage to nail, initial encounter (principal); I48.91 Unspecified atrial fibrillation; J44.9 Chronic obstructive pulmonary disease, unspecified; J45.909 Unspecified asthma, uncomplicated; Z86.73 Personal history of transient ischemic attack (TIA), and cerebral infarction without residual deficits; W26.0XXA Contact with knife, initial encounter; Z79.01 Long term (current) use of anticoagulants
CPT/HCPCS: 94640; J7620

== ENCOUNTER 2018-03-18 02:33 | Emergency (ER) | payer MEDICARE, MEDICAID ==
[2018-03-18] MEDS ORDERED: PHYTONADIONE INJ 5 MG in SODIUM CHLORIDE 0.9% 50ML 50 ML IVPB ONE ×3 (02:38→02:59)
[2018-03-18 02:54] VITALS: O2SAT 92
[2018-03-18] MEDS ORDERED: PHYTONADIONE INJ 10 MG/ML AMP ONE (02:55)
[2018-03-18] MEDS ORDERED: SODIUM CHLORIDE 0.9% 50ML 50 ML ONE (02:55)
--- NOTE | 2018-03-18 03:25 | ED.PDOC ---
History of Present Illness - General Chief Complaint: Laceration Stated Complaint: Bleeding of right forefinger Time Seen by Provider: 03/18/18 02:34 Source: patient Exam Limitations: no limitations - History of Present Illness Initial Comments: patient returns to the ER secondary to resumption of bleeding. Patient was seen earlier for laceration to his finger and had 4 stitches placed in the area. However, patient is on Coumadin therapy and bleeding was difficult to stop. However, on discharge home bleeding at that time had resolved. Patient states he was watching TV and it was doing fine for approximately an hour and a half. Suddenly started bleeding again approximately 20 minutes prior to arrival. By the time of arrival patient had dripping blood from the edge where the laceration occurred. He denies any trauma to the area or any increased activity. Timing/Duration: 1/2 hour Severity: moderate Improving Factors: nothing Worsening Factors: nothing Associated Symptoms: denies symptoms Allergies/Adverse Reactions: Allergies Bee Venom Allergy (Verified 03/17/18 20:59) Coconut Oil Allergy (Verified 03/17/18 20:59) Home Medications: Ambulatory Orders Furosemide Tab [Lasix Tab] 40 mg PO BID 07/28/16 Metoprolol Succinate [Metoprolol Succinate ER] 50 mg PO DAILY 12/18/16 Amlodipine Besylate 5 mg PO DAILY 12/11/17 Bupropion HCl [Wellbutrin Sr] 150 mg PO BID 12/11/17 Metolazone 5 mg PO DAILY PRN 12/11/17 Sacubitril-Valsartan [Entresto 97-103 mg] 1 tab PO BID 12/11/17 Warfarin Sodium 7.5 mg PO BEDTIME 12/11/17 Pantoprazole Tablet [Protonix] 40 mg PO BIDAC #60 tab 12/14/17 Acetamin W/Cod #3 Tab [Tylenol w/CODEINE #3] 1 ea PO Q6HR PRN #40 tab 12/28/17 Review of Systems - Review of Systems Constitutional: States: no symptoms reported. Denies: chills, fever EENTM: States: no symptoms reported Respiratory: States: no symptoms reported Cardiology: States: no symptoms reported Gastrointestinal/Abdominal: States: no symptoms reported Genitourinary: States: no symptoms reported Past Medical History (General) - Patient Medical History Hx Seizures: No Hx Stroke: Yes - Pt thinks he has had stroke before but unsure Hx Dementia: No Hx Asthma: Yes - Had since kid Hx of COPD: Yes Hx Cardiac Disorders: Yes - Atrial fib Hx Congestive Heart Failure: No Hx Pacemaker: Yes Hx Hypertension: Yes Hx Thyroid Disease: No Hx Diabetes: No Hx Gastroesophageal Reflux: No Hx Renal Disease: No Hx Cancer: No Hx of HIV: No Hx Hepatitis C: No Hx MRSA: No MRSA Source:: Wound - Vaccination History Hx Tetanus, Diphtheria Vaccination: Yes Hx Influenza Vaccination: Yes Hx Pneumococcal Vaccination: Yes Immunizations Up to Date: Yes - Social History Hx Tobacco Use: Yes Hx Chewing Tobacco Use: No Hx Alcohol Use: No Hx Substance Use: No Hx Substance Use Treatment: No Hx Depression: No Feels Threatened In Home Enviroment: No Feels Threatened In a Relationship: No Hx Physical Abuse: No Hx Emotional Abuse: No Hx Suspected Abuse: No - Activities of Daily Living Hospice Agency (if applicable):: None - Female History Patient : No - Triage Comment ED Triage Comment: Pt was seen on 03/17 in ER for laceration that was repaired with stitches and wrapped. Pt states that he was sitting at home watching television and began bleeding through the bandages about 20 minutes ago. Family Medical History - Family History Mother Family History: No Known Living Status: Still Living Hx Cardiac Disease: Yes - parents Hx Family Cancer: Yes - mom Hx Family;Other: copd Physical Exam - Physical Exam General Appearance: Other - holding bleeding finger dripping blood through bandages Neck: non-tender, full range of motion Respiratory: chest non-tender, lungs clear, normal breath sounds, no respiratory distress Cardiovascular/Chest: normal peripheral pulses, regular rate, rhythm, no edema Gastrointestinal/Abdominal: normal bowel sounds, non tender, soft Extremity: other - after bandages were removed and pressure placed bleeding decreased significantly rapidly. Patient's sutures were intact in place and wound approximation was intact as well Progress - Progress Progress: 03/18/18 03:26 unfortunately, patient returns with bleeding that resumed about 20 minutes ago. We were hoping to not have to reverse his Coumadin therapy but as he continues to bleed significantly we have started vitamin K. CBC was checked and is reassuring at this time. INR however is elevated at 4.1. Patiently monitored until bleeding has stopped. 03/18/18 04:34 Patient has mild bleeding on bandage not through bandage at this time. Exam shows still mild dripping at the site that is slow but persistant. We have re- wrapped it and will continue to monitor until bleeding stops. 03/18/18 05:33 03/18/18 02:59 Phytonadione Inj [Vitamin K Inj] 5 mg Sodium Chloride 0.9% 50Ml [NS 50ml] 50 ml IVPB ONCE Laboratory Results WBC 9.7 K/mm3 (4.8-10.8) 03/18/18 02:38 RBC 5.23 M/mm3 (4.70-6.10) 03/18/18 02:38 Hgb 16.7 gm/dL (14.0-18.0) 03/18/18 02:38 Hct 50.3 % (42.0-52.0) 03/18/18 02:38 MCV 96.2 fl (80.0-94.0) H 03/18/18 02:38 MCH 31.9 pg (27.0-31.0) H 03/18/18 02:38 MCHC 33.2 g/dL (33.0-37.0) 03/18/18 02:38 RDW 15.3 % (11.5-14.5) H 03/18/18 02:38 Plt Count 248 K/mm3 (130-400) 03/18/18 02:38 MPV 8.4 fl (7.40-10.4) 03/18/18 02:38 Absolute Neuts (auto) 6.10 K/uL (1.8-6.8) 03/18/18 02:38 Absolute Lymphs (auto) 2.70 K/uL (1.0-3.4) 03/18/18 02:38 Absolute Monos (auto) 0.80 K/uL (0.2-0.8) 03/18/18 02:38 Absolute Eos (auto) 0.10 K/uL (0.0-0.4) 03/18/18 02:38 Absolute Basos (auto) 0.10 K/uL (0.0-0.1) 03/18/18 02:38 Neutrophils % 62.7 % (42.0-78.0) 03/18/18 02:38 Lymphocytes % 27.4 % (20.0-50.0) 03/18/18 02:38 Monocytes % 8.2 % (2.0-9.0) 03/18/18 02:38 Eosinophils % 0.6 % (1.0-5.0) L 03/18/18 02:38 Basophils % 1.1 % (0.0-2.0) 03/18/18 02:38 PT 47.0 SECONDS (9.4-12.5) H* 03/18/18 02:38 INR 4.110 H* 03/18/18 02:38 PTT (SP) 66.9 SECONDS (25.1-36.5) H 03/18/18 02:38 Vitamin K was given on arrival. After 3 hours there was cessation of bleeding. Area was undressed from bandages and monitored with clot formation seen and no additional bleeding. Wound was covered and patient instructed to call his doctor on Tuesday to discuss when to restart coumadin. Departure - Departure Clinical Impression: Warfarin-induced coagulopathy, Accidental laceration Disposition: Discharge to Home or Self Care Condition: Good Departure Forms: ED Discharge - Pt. Copy, Patient Portal Self Enrollment Instructions: DI for Laceration Repair Diet: regular diet Referrals: Dylan Pickens MD [Primary Care Provider] - 1-2 Weeks Home Medications: Ambulatory Orders Furosemide Tab [Lasix Tab] 40 mg PO BID 07/28/16 Metoprolol Succinate [Metoprolol Succinate ER] 50 mg PO DAILY 12/18/16 Amlodipine Besylate 5 mg PO DAILY 12/11/17 Bupropion HCl [Wellbutrin Sr] 150 mg PO BID 12/11/17 Metolazone 5 mg PO DAILY PRN 12/11/17 Sacubitril-Valsartan [Entresto 97-103 mg] 1 tab PO BID 12/11/17 Warfarin Sodium 7.5 mg PO BEDTIME 12/11/17 Pantoprazole Tablet [Protonix] 40 mg PO BIDAC #60 tab 12/14/17 Acetamin W/Cod #3 Tab [Tylenol w/CODEINE #3] 1 ea PO Q6HR PRN #40 tab 12/28/17 Additional Instructions: hold coumadin until he can discuss with PCP on Tuesday. On Tuesday will need to recheck INR (patient has HH) and decide with his MD when to restart his medication. Of note he was 4.1 on his INR at this time and was reversed with vitamin K secondary to inability to stop bleeding with pressure.
[2018-03-18 05:46] VITALS: BP 138/96; TEMP 97.8
== END 2018-03-18 05:40 | disposition home or self-care (01) ==
LOC: ER 02:33
DX: S61.210D Laceration without foreign body of right index finger without damage to nail, subsequent encounter (principal); J44.9 Chronic obstructive pulmonary disease, unspecified; J45.909 Unspecified asthma, uncomplicated; I48.91 Unspecified atrial fibrillation; I10 Essential (primary) hypertension; D68.32 Hemorrhagic disorder due to extrinsic circulating anticoagulants; T45.515A Adverse effect of anticoagulants, initial encounter; Z95.0 Presence of cardiac pacemaker; Z86.73 Personal history of transient ischemic attack (TIA), and cerebral infarction without residual deficits; Z87.891 Personal history of nicotine dependence; Z79.01 Long term (current) use of anticoagulants
CPT/HCPCS: 36415; 85025; 85610; 85730; A4216; J3430

== ENCOUNTER → 2018-03-30 | Outpatient (CLI) | payer MEDICARE, MEDICAID | LOC: NC 09:52 | PROVIDERS: ATTEND General Practice | DX: I48.2 Chronic atrial fibrillation (principal) ==

== ENCOUNTER 2020-07-13 21:33 | Observation (INO) | payer MEDICARE, MEDICAID ==
[2020-07-13] MEDS ORDERED: CHLORHEXIDINE GLUCONATE 4 % 15 ML UD TOP ONE (21:37)
[2020-07-13] MEDS ORDERED: IPRATROPIUM/ALBUTEROL 3 ML VIAL NEB ONE (21:58)
[2020-07-13] MEDS ORDERED: PHYTONADIONE INJ 10 MG/ML AMP IM ONE (23:53)
[2020-07-14] MEDS ORDERED: predniSONE 20 MG TAB PO ONE (00:03)
[2020-07-14] MEDS ORDERED: SULFA/TRIMETH 800/160 (DS) TAB 1 EA TAB PO ONE (00:11)
--- NOTE | 2020-07-14 00:11 | ED.PDOC ---
History of Present Illness - General Chief Complaint: Skin/Abrasion/Tear Stated Complaint: LFA skin tear won't stop bleeding on Coumadin Time Seen by Provider: 07/13/20 21:39 Source: patient Exam Limitations: no limitations - History of Present Illness Initial Comments: The patient is a 49-year-old male presented emergency room secondary to continued bleeding from skin tear sites. The patient apparently tripped and fell going up stairs today and sustained skin tears primarily the left upper extremity but also a small skin tear to the tip of the third toe of the left foot. All of these sites have continued bleeding for approximately 4 to 6 hours. The patient does take Coumadin for atrial fibrillation but reports he has been I am able to get his Coumadin level checked because he no longer has home health. He takes Coumadin 7 mg daily. The patient reports that he did have a little bit of spontaneous bleeding from his teeth today. He also does have some bruising superficially on the stomach from the fall. No active bleeding from the mouth. The patient has soaked several menstrual pads from the skin tears to the left upper extremity. He did bring those in. No dizziness. The patient does have audible wheezes heard across the room but does have COPD and does still smoke multiple packs a day. He reports that his pulmonary status is not really far from baseline. Patient does take diuretics for CHF. He is unsure when was the last time he had a kidney function check. Patient is not hypoxic. He does have chronic +1 edema of the bilateral lower extremities, likely also contributed to by morbid obesity. The patient has very poor hygiene. Timing/Duration: 4-6 hours Severity: mild Improving Factors: nothing Worsening Factors: nothing Associated Symptoms: denies symptoms Allergies/Adverse Reactions: Allergies Bee Venom Allergy (Verified 07/13/20 21:48) Coconut Oil Allergy (Verified 07/13/20 21:48) Home Medications: Ambulatory Orders Furosemide Tab [Lasix Tab] 40 mg PO BID 07/28/16 Amlodipine Besylate 5 mg PO DAILY 12/11/17 Warfarin Sodium 7 mg PO BEDTIME 12/11/17 Acetaminophen [Tylenol] 500 mg PO PRN 07/13/20 Allopurinol [Zyloprim] 100 mg PO TID 07/13/20 Ybbuleuchmj-Origvmdhdooo-Qpyxa [Trelegy Ellipta 100-62.5-25 Mcg/INH] 1 aer IN DAILY 07/13/20 Levothyroxine Sodium 100 mcg PO QAM 07/13/20 Sacubitril-Valsartan [Entresto 49-51 mg] 1 tab PO BID 07/13/20 Spironolactone 25 mg PO BID 07/13/20 Review of Systems - Review of Systems Constitutional: States: no symptoms reported EENTM: States: see HPI Respiratory: States: wheezing Cardiology: States: no symptoms reported Gastrointestinal/Abdominal: States: no symptoms reported Genitourinary: States: no symptoms reported Musculoskeletal: States: see HPI Skin: States: see HPI Neurological: States: no symptoms reported Endocrine: States: no symptoms reported Hematologic/Lymphatic: States: no symptoms reported All other Systems: No Change from Baseline Past Medical History (General) - Patient Medical History Hx Seizures: No Hx Stroke: No Hx Dementia: No Hx Asthma: Yes - Had since kid Hx of COPD: Yes Hx Cardiac Disorders: Yes - A Fib Hx Congestive Heart Failure: Yes Hx Pacemaker: Yes Hx Hypertension: Yes Hx Thyroid Disease: Yes Hx Diabetes: No Hx Gastroesophageal Reflux: No Hx Renal Disease: No Hx Cancer: No Hx of HIV: No Hx Hepatitis C: No Hx MRSA: No MRSA Source:: Wound Surgical History: appendectomy - Vaccination History Hx Tetanus, Diphtheria Vaccination: No Hx Influenza Vaccination: No Hx Pneumococcal Vaccination: No - Social History Hx Tobacco Use: Yes Hx Chewing Tobacco Use: No Hx Alcohol Use: No Hx Substance Use: No Hx Substance Use Treatment: No Hx Depression: No Hx Physical Abuse: No Hx Emotional Abuse: No Hx Suspected Abuse: No - Female History Patient : No Family Medical History - Family History Mother Family History: No Known Living Status: Still Living Hx Cardiac Disease: Yes - parents Hx Family Cancer: Yes - mom Hx Family;Other: copd Physical Exam - Physical Exam General Appearance: Alert, Comfortable, No apparent distress Eye Exam: bilateral normal Ears, Nose, Throat: hearing grossly normal, other - No evidence of active bleeding. Neck: full range of motion, supple Respiratory: decreased breath sounds, accessory muscle use, wheezing Cardiovascular/Chest: normal peripheral pulses, irregularly irregular, other - Regular rate Peripheral Pulses: radial,right: 2+, radial,left: 2+ Gastrointestinal/Abdominal: other - Morbidly obese. Superficial bruising is seen. No guarding. No rebound. No peritoneal signs. 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 Small skin tears to the left upper extremity that continue to ooze. Comments: Vital Signs - 24 hr 07/13/20 07/13/20 07/13/20 21:34 22:00 23:00 Temperature 97.8 F 97.7 F Pulse Rate [ 85 80 63 monitor] Respiratory 20 20 20 Rate Blood Pressure 96/58 122/59 128/52 [Right Arm] O2 Sat by Pulse 96 93 L 93 L Oximetry Progress - Progress Progress: 07/14/20 00:16 The patient is a 49-year-old male presenting to emergency room secondary to continued bleeding from skin tear sites from a fall earlier in the day, to the left upper extremity and the left third toe. The skin tears were cleaned with saline, reapproximated and then Steri-Strips placed along with pressure dressings. This does seem to have largely controlled the bleeding at this point. The patient has a markedly supratherapeutic INR, as it is not calculable on our equipment. As the patient does not appear to have any life- threatening bleeding at this point, we will correct with an injection of vitamin K. I do want to place the patient as an observation overnight to allow for redressing of any bandages that may yet soak through as well as to allow for reassessment of his coagulation status in the morning, and reassess whether his wounds are continuing to ooze at that point or not. Obviously if they continue to do so, he may require fresh frozen plasma. The patient does have a mild COPD exacerbation and has received a dose of prednisone and duo nebs. He is not hypoxic and he is breathing better at this point. Vital signs are stable and the patient is in no distress. We are not going to place an IV on this patient at this time as he would likely only bleed around the IV for the next 4 to 6 hours. Obviously if we need to get one to effectuate patient care at any point, then that will be done. At this point it would simply cause harm. Additionally the patient has mild acute on chronic renal insufficiency. He is likely mildly over diuresed. Holding his Lasix for 2 to 3 days will likely help correct this issue. Patient does need to get set up with a new local primary care doctor as he has apparently moved back here from [place]. The patient will likely be able to be discharged home tomorrow assuming adequate hemostatic control has been achieved. nidia costa [phone] - Results/Orders Results/Orders: Laboratory Tests 07/13/20 07/13/20 07/13/20 22:40 22:40 22:40 WBC 9.4 RBC 4.35 L Hgb 13.3 L Hct 40.3 L MCV 92.7 MCH 30.6 MCHC 33.0 RDW 15.4 H Plt Count 219 MPV 8.1 Absolute Neuts (auto) 6.00 Absolute Lymphs (auto) 2.50 Absolute Monos (auto) 0.70 Absolute Eos (auto) 0.10 Absolute Basos (auto) 0.10 Neutrophils % 63.8 Lymphocytes % 26.9 Monocytes % 7.2 Eosinophils % 0.9 L Basophils % 1.2 PT 93.6 H* INR Not Reportable PTT (SP) 77.3 H* Sodium 140 Potassium 3.9 Chloride 106 Carbon Dioxide 22 Anion Gap 15.9 BUN 44 H Creatinine 2.23 H BUN/Creatinine Ratio 19.7 Random Glucose 112 H Serum Osmolality 291.3 Calcium 8.2 L Total Bilirubin 0.5 AST 18 ALT 20 Alkaline Phosphatase 82 Serum Total Protein 6.6 Albumin 3.6 Globulin 3.0 Albumin/Globulin Ratio 1.2 Departure - Departure Clinical Impression: Medical non-compliance, COPD with exacerbation, Accidental laceration, Hypercoagulable state, Warfarin-induced coagulopathy Acute on chronic renal failure Qualifiers: Acute renal failure type: unspecified Chronic kidney disease stage: stage 3 (moderate) Disposition: Admit Patient Condition: Fair Departure Forms: ED Discharge - Pt. Copy, Patient Portal Self Enrollment Referrals: CALI YANCEY [Primary Care Provider] - 1-2 Weeks Home Medications: Ambulatory Orders Furosemide Tab [Lasix Tab] 40 mg PO BID 07/28/16 Amlodipine Besylate 5 mg PO DAILY 12/11/17 Warfarin Sodium 7 mg PO BEDTIME 12/11/17 Acetaminophen [Tylenol] 500 mg PO PRN 07/13/20 Allopurinol [Zyloprim] 100 mg PO TID 07/13/20 Jagmqbfwntv-Mkzgwtyctlln-Gtziy [Trelegy Ellipta 100-62.5-25 Mcg/INH] 1 aer IN DAILY 07/13/20 Levothyroxine Sodium 100 mcg PO QAM 07/13/20 Sacubitril-Valsartan [Entresto 49-51 mg] 1 tab PO BID 07/13/20 Spironolactone 25 mg PO BID 07/13/20 Decision To Admit - Decistion To Admit Decision to Admit Reason: Medical Nature Decision to Admit Date: 07/14/20 Decision to Admit Time: 00:24
--- NOTE | 2020-07-14 00:32 | HP ---
SUPERVISING PHYSICIAN: Keiry Ramirez MD CHIEF COMPLAINT: Skin abrasions and tear that will not stop bleeding. HISTORY OF PRESENT ILLNESS: This 49-year-old male patient who is morbidly obese came to the Emergency Room secondary to continued bleeding from skin tear sites. He had apparently tripped on some stairs and sustained skin tears to the left upper extremity. He also had one on the third toe of the left foot. They continued bleeding for 4 to 6 hours prior to coming to the Emergency Room. He does take 7 mg of Coumadin daily due to his atrial fibrillation, but he has not been able to get his Coumadin level checked in quite some time. He sees a physician in [place], [place]. In the Emergency Room, his initial vital signs showed temperature 97.8, heart rate 85, blood pressure 96/58, respiratory rate 20, O2 saturation 96% on room air. Lab studies were done. His WBCs were 9.4, hemoglobin 13.3, hematocrit 40.3. His PT was 93.6. INR was unreportable. PTT was 77.3. Chemistries showed electrolytes basically within normal limits with the exception of his calcium is slightly low at 8.2. BUN 44, creatinine 2.23, baseline creatinine about 1.2 to 1.3. He was given some vitamin K in the Emergency Room as well as some prednisone and Bactrim. He also has a BMI of 51.9. Due to the continued bleeding and the high INR, he was placed in observation in the hospital to monitor his PT/INR. This morning, his hemoglobin and hematocrit were basically unchanged at 13.3 and 39.8. PT was unchanged at greater than 93.6. It was felt that most likely he was unable to absorb the vitamin K due to his obesity. PAST MEDICAL HISTORY: 1. Chronic atrial fibrillation on Coumadin therapy. 2. Chronic renal insufficiency. Baseline creatinine is 1.2 to 1.3. 3. Chronic obstructive pulmonary disease. 4. Tobacco abuse. 5. Morbid obesity. 6. Umbilical hernia. PAST SURGICAL HISTORY: 1. Appendectomy. 2. Eye surgery. 3. Pacemaker implantation. OUTPATIENT MEDICATIONS: Per the EMR and awaiting verification. ALLERGIES: NO KNOWN DRUG ALLERGIES. FAMILY HISTORY: Positive for cancer, hypertension, obesity, diabetes. SOCIAL HISTORY: He lives in [place]. He is disabled. He smokes approximately one pack of cigarettes daily. He denies any ETOH or illicit drug use. REVIEW OF SYSTEMS: GENERAL: Negative for fever, fatigue or weight changes. HEENT: Negative for sinus symptoms, ear pain, vision changes or sore throat. RESPIRATORY: Negative for wheezing, coughing or shortness of breath. CARDIAC: Negative for chest pain, palpitations or tachycardia. GASTROINTESTINAL: Negative for nausea, vomiting, diarrhea. GENITOURINARY: Negative for hematuria, dysuria or polyuria. HEMATOLOGIC: Negative for excessive bruising although he does have the skin tears that will not stop bleeding. SKIN: As per history of present illness. Negative for lesions or rashes. NEUROLOGIC: Negative for headache, weakness or seizures. PHYSICAL EXAMINATION: VITAL SIGNS: Temperature 98, heart rate 61, blood pressure 107/64, respiratory rate 20. O2 saturation 94% on 1 liter nasal cannula. GENERAL: This is a 49-year-old morbidly obese male who is sitting on the side of the bed. He looks to be in mild respiratory distress. HEENT: Normocephalic, atraumatic. Pupils are equal and reactive. Oropharynx is clear. NECK: Supple without mass. RESPIRATORY: Diminished throughout all lung padilla. CHEST: There is equal rise and fall of the chest with inspiration and expiration. CARDIOVASCULAR: Regular rate and rhythm. GASTROINTESTINAL: Abdomen is soft. He is obese. Bowel sounds are positive. NEUROLOGIC: Awake, alert and oriented times three. SKIN: Warm and dry. He does have multiple pressure dressings on his left arm that are dry and intact. LABORATORY: Labs and films are as per history of present illness. IMPRESSION: 1. Supratherapeutic PT greater than 93 on Coumadin routinely. 2. Morbid obesity with BMI 51.9. 3. Poor medical compliance. 4. Chronic atrial fibrillation on Coumadin. 5. Acute on chronic renal failure with creatinine 2.23 on admission. His baseline creatinine is 1.2 to 1.3. 6. Hypertension. 7. Chronic obstructive pulmonary diseased with chronic dyspnea and no signs or symptoms of acute exacerbation. PLAN: The patient has been placed in observation. At this point, he is being given a dose of vitamin K and they have given it IM in his thigh. He will receive another dose of vitamin K this afternoon. We will recheck his PT/INR about 5 PM. I will recheck his labs in the morning. He will need to go home on Eliquis as he is very noncompliant on his Coumadin and is unable to get his PT/INR checked routinely. Hopefully we can try to get him in at [facility]. #[id number] GINA
[2020-07-14] MEDS ORDERED: SODIUM CHLORIDE 0.9% (FLUSH) 10 ML SYG IV PRN (01:03)
[2020-07-14] MEDS ORDERED: ALBUTEROL SULFATE 2.5 MG/3 ML VIAL NEB PRN (01:03)
[2020-07-14] MEDS ORDERED: ONDANSETRON INJ 4 MG/2 ML VIAL IV PRN (01:03)
[2020-07-14] MEDS ORDERED: ACETAMINOPHEN 325 MG TAB PO PRN (01:03)
[2020-07-14] MEDS ORDERED: IV SET AND CAP CHANGE INJ INJ SCH (01:30)
[2020-07-14] MEDS: LEVOTHYROXINE SODIUM 0.1 MG TAB PO SCH ×2 (06:00→09:08)
[2020-07-14] MEDS ORDERED: amLODIPine BESYLATE 5 MG TAB ONE (07:16)
[2020-07-14] MEDS: IPRATROPIUM/ALBUTEROL 3 ML VIAL INH SCH ×4 (08:08→20:50)
[2020-07-14] MEDS ORDERED: LEVOTHYROXINE SODIUM 0.1 MG TAB PO SCH (09:00)
[2020-07-14] MEDS ORDERED: FUROSEMIDE 40 MG TAB PO SCH (09:00)
[2020-07-14] MEDS ORDERED: AMLODIPINE BESYLATE 5 MG PO SCH (09:00)
[2020-07-14] MEDS ORDERED: NON-FORMULARY MEDICATION 1 EA MIS (Fluticasone-Umeclidinium-Vilan [Trelegy Ellipta 100-62. IN SCH (09:00)
[2020-07-14] MEDS ORDERED: ENOXAPARIN SODIUM 40 MG/0.4 ML SYG SUBCU SCH (09:00)
[2020-07-14] MEDS: ALLOPURINOL 100 MG TAB PO SCH ×3 (09:07→20:07)
[2020-07-14] MEDS: SPIRONOLACTONE 25 MG TAB PO SCH ×2 (09:08→20:07)
[2020-07-14] MEDS ORDERED: PHYTONADIONE INJ 10 MG/ML AMP IM ONE ×3 (10:05→18:00)
[2020-07-14] MEDS: SACUBITRIL VALSARTAN PO SCH ×2 (10:35→20:07)
[2020-07-14] MEDS: FUROSEMIDE 40 MG TAB PO SCH (16:53)
[2020-07-14] MEDS ORDERED: PANTOPRAZOLE SODIUM IV 40 MG VIAL ONE (19:03)
[2020-07-14] MEDS ORDERED: LEVOTHYROXINE SODIUM 0.1 MG TAB ONE (19:03)
[2020-07-14] MEDS ORDERED: traMADol HCL 50 MG TAB ONE (19:35)
[2020-07-14] MEDS ORDERED: TEMAZEPAM 15 MG CAP ONE (19:35)
[2020-07-15] MEDS ORDERED: PANTOPRAZOLE SODIUM IV 40 MG VIAL IV SCH (06:30)
[2020-07-15] MEDS ORDERED: LEVOTHYROXINE SODIUM 0.1 MG TAB PO SCH (06:30)
[2020-07-15] MEDS ORDERED: PANTOPRAZOLE SODIUM TAB 40 MG PO SCH (06:30)
[2020-07-15] MEDS ORDERED: FUROSEMIDE INJ 40 MG/4 ML VIAL ONE (07:42)
[2020-07-15] MEDS ORDERED: amLODIPine BESYLATE 5 MG TAB ONE (07:54)
[2020-07-15] MEDS: IPRATROPIUM/ALBUTEROL 3 ML VIAL INH SCH ×2 (08:11→12:01)
[2020-07-15] MEDS ORDERED: amLODIPine BESYLATE 5 MG TAB PO SCH (09:00)
[2020-07-15] MEDS ORDERED: APIXABAN 5 MG TAB PO SCH (09:30)
[2020-07-15 10:18] VITALS: BP 102/52; TEMP 97.8; O2SAT 96
[2020-07-15] MEDS ORDERED: DOXYCYCLINE HYCLATE CAP 100 MG CAP PO SCH (12:00)
[2020-07-15] MEDS: SPIRONOLACTONE 25 MG TAB PO SCH (13:35)
[2020-07-15] MEDS: ALLOPURINOL 100 MG TAB PO SCH (14:59)
[2020-07-15] MEDS: SACUBITRIL VALSARTAN PO SCH (14:59)
[2020-07-15] MEDS: FUROSEMIDE 40 MG TAB PO SCH (14:59)
--- NOTE | 2020-07-16 08:56 | DS ---
SUPERVISING PHYSICIAN: Keiry Ramirez MD DISCHARGE DIAGNOSIS: 1. Supratherapeutic PT greater than 93 on Coumadin routinely. 2. Morbid obesity with BMI 51.9. 3. Poor medical compliance. 4. Chronic atrial fibrillation on Coumadin. 5. Acute on chronic renal failure with creatinine 2.23 on admission. His baseline creatinine is 1.2 to 1.3. 6. Hypertension. 7. Chronic obstructive pulmonary diseased with chronic dyspnea and no signs or symptoms of acute exacerbation. HISTORY OF PRESENT ILLNESS: This 49-year-old male patient who is morbidly obese came to the Emergency Room secondary to continued bleeding from multiple skin tear sites. He had apparently tripped on some stairs and sustained some abrasions to his left upper extremity. He also had one on the third toe of the left foot. They continued bleeding for 4 to 6 hours prior to coming to the Emergency Room. He does take 7 mg of Coumadin daily due to his atrial fibrillation, but he has not been able to get his Coumadin level checked in quite some time. He had been getting it checked by home health and at some point saw a physician in [place], [place], but has not had his INR checked in several months. His initial vital signs showed temperature 97.8, heart rate 85, blood pressure 96/58, respiratory rate 20, O2 saturation 96% on room air. Lab studies done showed WBC 9.4, hemoglobin 13.3, hematocrit 40.3. His PT was 93.6. INR was unreportable. PTT was 77.3. Chemistries showed electrolytes basically within normal limits with the exception of his calcium slightly low at 8.2. BUN 44, creatinine 2.23, baseline creatinine about 1.2 to 1.3. He also has a BMI of 51.9. Due to the continued bleeding and the high INR, he was placed in observation in the hospital to monitor his PT/INR. The morning after he was admitted, his hemoglobin and hematocrit were basically unchanged at 13.3 and 39.8. PT was also unchanged at greater than 93.6. It was felt that most likely he was unable to absorb the vitamin K given IM due to his obesity. HOSPITAL COURSE: The patient was placed in the hospital. He was given an IM injection of 10 mg of vitamin K IM in the thigh and it was repeated 4 hours later. His PT came down to 56.8. He was given another dose of vitamin K IM and this morning, his PT was down to 15.5 with INR 1.57 and PTT 31.8. The skin tears on his left arm had minimal oozing of blood after his PT and INR normalized. There was a very small amount of sanguineous blood oozing from one skin tear on his forearm. It was re-dressed. His Coumadin was discontinued and he was started on Eliquis. He was also given doxycycline duet o the possibility of skin infection. He will be discharged home today in stable condition. LABORATORY: WBCs stable at 9.5 with hemoglobin 12.6 and hematocrit 37.7. PT on admission was 93.6 and after 40 mg of vitamin K, it is down to 15.5. His INR is now 1.57. PTT on admission was 77.3 and is now 31.8. Electrolytes are within normal limits. Creatinine was 2.23 on admission and has come down to 1.78. Calcium slightly low at 8. DISCHARGE PLAN: The patient will be discharged home in stable condition. He is to resume his previous diet and increase his activity as tolerated. He is strongly encouraged to stop smoking. He has a followup appointment with Ivy Andrew at 1:20 PM on 07/21/20. He is to discontinue his Coumadin, but continue all other medications. In addition to his home medications, he is also to continue on Eliquis 5 mg b.i.d. and doxycycline 100 mg b.i.d. for 7 days. Again, he is strongly encouraged to stop smoking and not to take his warfarin. I have given him 7 days of samples of Eliquis and a prescription has been called in for his new medication to [facility]. He is to return to the hospital or followup with [facility] for any problems or complications. DISCHARGE MEDICATIONS: 1. Furosemide. 2. Amlodipine. 3. Levothyroxine. 4. Trelegy Ellipta. 5. Entresto. 6. Tylenol. 7. Spironolactone. 8. Allopurinol. 9. Eliquis. 10. Doxycycline. #[id number] [facility]
== END 2020-07-15 16:00 | disposition home or self-care (01) ==
LOC: ER 21:33 → MS 07-14 00:30
PROVIDERS: ADMIT Nurse Practitioner Acute Care; ATTEND Nurse Practitioner Acute Care
DX: R79.1 Abnormal coagulation profile (principal); E66.01 Morbid (severe) obesity due to excess calories; Z68.43 Body mass index [BMI] 50.0-59.9, adult; Z91.19 Patient's noncompliance with other medical treatment and regimen; I48.20 Chronic atrial fibrillation, unspecified; N17.9 Acute kidney failure, unspecified; I13.0 Hypertensive heart and chronic kidney disease with heart failure and stage 1 through stage 4 chronic kidney disease, or unspecified chronic kidney disease; N18.30 Chronic kidney disease, stage 3 unspecified; I50.9 Heart failure, unspecified; J44.9 Chronic obstructive pulmonary disease, unspecified; F17.210 Nicotine dependence, cigarettes, uncomplicated; S41.112A Laceration without foreign body of left upper arm, initial encounter; S91.115A Laceration without foreign body of left lesser toe(s) without damage to nail, initial encounter; S30.1XXA Contusion of abdominal wall, initial encounter; E07.9 Disorder of thyroid, unspecified; Z79.01 Long term (current) use of anticoagulants; Z79.51 Long term (current) use of inhaled steroids; Z79.899 Other long term (current) drug therapy; Z95.0 Presence of cardiac pacemaker; W01.0XXA Fall on same level from slipping, tripping and stumbling without subsequent striking against object, initial encounter; Y93.01 Activity, walking, marching and hiking; Y92.009 Unspecified place in unspecified non-institutional (private) residence as the place of occurrence of the external cause
CPT/HCPCS: 96372; J7611; J3430 ×4; J7512; J7620 ×7; 80048 ×2; 80053; 85014; 85018; 36415 ×5; 85025 ×2; 83735; 85730 ×2; 85610 ×4; 94640 ×8; 94760 ×2; 94762; 99285; G0378

== ENCOUNTER → 2020-07-24 | Outpatient (CLI) | payer MEDICARE, MEDICAID | LOC: YCFC.O 11:24 | PROVIDERS: ATTEND Family Medicine | DX: D64.9 Anemia, unspecified (principal); E03.9 Hypothyroidism, unspecified; R73.9 Hyperglycemia, unspecified; E78.2 Mixed hyperlipidemia ==

== ENCOUNTER 2020-08-07 19:15 | Emergency (ER) | payer MEDICARE, MEDICAID ==
[2020-08-07] MEDS ORDERED: IPRATROPIUM/ALBUTEROL 3 ML VIAL NEB ONE (19:39)
--- NOTE | 2020-08-07 20:33 | RAD ---
EXAM: Chest,1 View CLINICAL INDICATION: Shortness of breath COMPARISON: 06/03/2017 FINDINGS: A single view of the chest was obtained. The heart size is moderately enlarged. There is a left-sided pacemaker. The pulmonary vascularity is unremarkable. The lungs are clear. There is no consolidation, infiltrate, pleural effusion, or pneumothorax. IMPRESSION: No evidence of active pulmonary disease. Moderate cardiomegaly. Electronically signed by: Thierry Lewis MD 08/07/2020 8:31 PM [facility]
[2020-08-07] MEDS ORDERED: methylPREDNISolone SODIUM SUC 125 MG/2 ML VIAL IV ONE (22:14)
[2020-08-07] MEDS ORDERED: ALBUTEROL SULFATE 2.5 MG/3 ML VIAL NEB ONE (22:15)
--- NOTE | 2020-08-08 00:05 | ED.PDOC ---
History of Present Illness - General Chief Complaint: Respiratory Problem Time Seen by Provider: 08/07/20 19:37 Source: patient Exam Limitations: no limitations - History of Present Illness Initial Comments: The patient is a 49-year-old male presented emergency room secondary to a COPD exacerbation. The patient has had multiple COPD exacerbations in the past. He also has a history of CHF. He takes Eliquis and does have a history of atrial fibrillation. The patient does still smoke. He does normally wear oxygen at about 2 L/min. The patient reports increased productive sputum over the last couple of days. No chest pain. No syncope. He has been doing his breathing treatments every 2-3 hours according to him but again he had still been smoking. Timing/Duration: other Severity: severe Improving Factors: medication Worsening Factors: nothing Associated Symptoms: cough, malaise, shortness of breath Allergies/Adverse Reactions: Allergies Bee Venom Allergy (Verified 07/13/20 21:48) Coconut Oil Allergy (Verified 07/13/20 21:48) Home Medications: Ambulatory Orders Furosemide Tab [Lasix Tab] 40 mg PO BID 07/28/16 Amlodipine Besylate 5 mg PO DAILY 12/11/17 Acetaminophen [Tylenol] 500 mg PO PRN 07/13/20 Allopurinol [Zyloprim] 100 mg PO TID 07/13/20 Vsyscajdsyu-Xbuxirptgiau-Ngfix [Trelegy Ellipta 100-62.5-25 Mcg/INH] 1 aer IN DAILY 07/13/20 Levothyroxine Sodium 100 mcg PO QAM 07/13/20 Sacubitril-Valsartan [Entresto 49-51 mg] 1 tab PO BID 07/13/20 Spironolactone 25 mg PO BID 07/13/20 Apixaban [Eliquis] 5 mg PO BID #60 tab 07/15/20 Doxycycline Hyclate [Vibramycin] 100 mg PO BID #14 cap 07/15/20 Review of Systems - Review of Systems Constitutional: States: no symptoms reported EENTM: States: no symptoms reported Respiratory: States: cough, short of breath, wheezing Cardiology: States: no symptoms reported Gastrointestinal/Abdominal: States: no symptoms reported Genitourinary: States: no symptoms reported Musculoskeletal: States: no symptoms reported Skin: States: no symptoms reported Neurological: States: no symptoms reported Endocrine: States: no symptoms reported All other Systems: No Change from Baseline Past Medical History (General) - Patient Medical History Hx Seizures: No Hx Stroke: No Hx Dementia: No Hx Asthma: Yes Hx of COPD: Yes Hx Cardiac Disorders: Yes - A Fib Hx Congestive Heart Failure: Yes Hx Pacemaker: Yes Hx Hypertension: No Hx Thyroid Disease: Yes Hx Diabetes: No Hx Gastroesophageal Reflux: No Hx Renal Disease: No Hx Cancer: No Hx of HIV: No Hx Hepatitis C: No Hx MRSA: No MRSA Source:: Wound - Vaccination History Hx Tetanus, Diphtheria Vaccination: No Hx Influenza Vaccination: No Hx Pneumococcal Vaccination: Yes Immunizations Up to Date: No - Social History Hx Tobacco Use: No Hx Chewing Tobacco Use: No Hx Alcohol Use: No Hx Substance Use: No Hx Substance Use Treatment: No Hx Depression: No Hx Physical Abuse: No Hx Emotional Abuse: No Hx Suspected Abuse: No - Female History Patient : No Family Medical History - Family History Father Living Status: Hx Family Congestive Heart Failure: Yes Mother Family History: No Known Living Status: Hx Cardiac Disease: No Hx Family Cancer: Yes - lungcancer Hx Family;Other: copd Physical Exam - Physical Exam General Appearance: Alert, Obvious distress, Ill Appearing Eye Exam: bilateral normal Ears, Nose, Throat: hearing grossly normal, normal ENT inspection, normal pharynx Neck: full range of motion, supple Respiratory: respiratory distress, decreased breath sounds, accessory muscle use, rhonchi, wheezing Cardiovascular/Chest: normal peripheral pulses, other - Regular rate. Chronic +1 edema to bilateral lower extremities. 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 as tested, alert, normal mood/affect, oriented x 3 Skin Exam: normal color Comments: Vital Signs - 24 hr 08/07/20 08/07/20 08/07/20 19:24 20:15 21:00 Temperature 96.3 F L Pulse Rate [ 80 71 83 monitor] Respiratory 22 18 18 Rate Blood Pressure 159/99 159/99 152/97 [left fa] O2 Sat by Pulse 88 L 95 94 L Oximetry 08/07/20 22:09 Temperature Pulse Rate [ 73 monitor] Respiratory 14 Rate Blood Pressure 167/96 [left fa] O2 Sat by Pulse 99 Oximetry Progress - Progress Progress: 08/08/20 00:05 The patient is a 49-year-old male presented to the emergency room secondary to a COPD exacerbation with respiratory distress. The patient has received a total of 5 albuterol treatments over the course of a couple of hours. He is breathing more easily however he does still significantly desaturate with any activity. He is going to require hourly to every 2 hour nebulizer treatments for the next couple of days. He did receive doses of Solu-Medrol, Rocephin and azithromycin. He is of course still receiving higher flow oxygen. The patient is being transferred to [facility] in [facility] for continued care. Their help is appreciated. - Results/Orders Results/Orders: Chest x-ray shows cardiomegaly and chronic changes of COPD. There does appear to be some air trapping. No large focal infiltrate. No pneumothorax. Patient tested negative for coronavirus EKG shows a ventricular paced rhythm with atrial fibrillation. No obvious acute changes when compared to previous. Laboratory Tests 08/07/20 08/07/20 08/07/20 20:00 20:00 20:00 WBC 8.5 RBC 4.26 L Hgb 13.3 L Hct 40.2 L MCV 94.4 H MCH 31.3 H MCHC 33.1 RDW 16.6 H Plt Count 254 MPV 7.9 Absolute Neuts (auto) 5.70 Absolute Lymphs (auto) 2.00 Absolute Monos (auto) 0.60 Absolute Eos (auto) 0.10 Absolute Basos (auto) 0.10 Neutrophils % 67.3 Lymphocytes % 23.7 Monocytes % 7.3 Eosinophils % 0.8 L Basophils % 0.9 PT 14.4 H INR 1.45 H PTT (SP) 37.0 H Fibrinogen D-Dimer, Quantitative < 100.0 L Sodium 142 Potassium 4.9 Chloride 100 L Carbon Dioxide 32 H Anion Gap 14.9 BUN 27 H Creatinine 1.85 H BUN/Creatinine Ratio 14.6 Random Glucose 95 Serum Osmolality 288.0 Lactic Acid Calcium 8.4 Magnesium 2.3 Ferritin Total Bilirubin 0.5 AST 21 ALT 25 Alkaline Phosphatase 96 LD Total Creatine Kinase 247 H* CK-MB (CK-2) 3.7 CK-MB (CK-2) % 1.50 Troponin I 0.02 C-Reactive Protein B-Natriuretic Peptide 332.0 H* Serum Total Protein 7.7 Albumin 3.7 Globulin 4.0 H Albumin/Globulin Ratio 0.9 L 08/07/20 08/07/20 08/07/20 20:00 20:00 20:00 WBC RBC Hgb Hct MCV MCH MCHC RDW Plt Count MPV Absolute Neuts (auto) Absolute Lymphs (auto) Absolute Monos (auto) Absolute Eos (auto) Absolute Basos (auto) Neutrophils % Lymphocytes % Monocytes % Eosinophils % Basophils % PT INR PTT (SP) Fibrinogen 587 H D-Dimer, Quantitative Sodium Potassium Chloride Carbon Dioxide Anion Gap BUN Creatinine BUN/Creatinine Ratio Random Glucose Serum Osmolality Lactic Acid 1.3 Calcium Magnesium Ferritin 38.7 Total Bilirubin AST ALT Alkaline Phosphatase LD Total Creatine Kinase CK-MB (CK-2) CK-MB (CK-2) % Troponin I C-Reactive Protein B-Natriuretic Peptide Serum Total Protein Albumin Globulin Albumin/Globulin Ratio 08/07/20 20:00 WBC RBC Hgb Hct MCV MCH MCHC RDW Plt Count MPV Absolute Neuts (auto) Absolute Lymphs (auto) Absolute Monos (auto) Absolute Eos (auto) Absolute Basos (auto) Neutrophils % Lymphocytes % Monocytes % Eosinophils % Basophils % PT INR PTT (SP) Fibrinogen D-Dimer, Quantitative Sodium Potassium Chloride Carbon Dioxide Anion Gap BUN Creatinine BUN/Creatinine Ratio Random Glucose Serum Osmolality Lactic Acid Calcium Magnesium Ferritin Total Bilirubin AST ALT Alkaline Phosphatase LD Total 190 H Creatine Kinase CK-MB (CK-2) CK-MB (CK-2) % Troponin I C-Reactive Protein 3.3 H B-Natriuretic Peptide Serum Total Protein Albumin Globulin Albumin/Globulin Ratio Departure - Departure Clinical Impression: COPD with exacerbation, Respiratory distress Disposition: Transfer to Hospital Departure Forms: ED Discharge - Pt. Copy, Patient Portal Self Enrollment Referrals: CALI YANCEY [Primary Care Provider] - 1-2 Weeks Home Medications: Ambulatory Orders Furosemide Tab [Lasix Tab] 40 mg PO BID 07/28/16 Amlodipine Besylate 5 mg PO DAILY 12/11/17 Acetaminophen [Tylenol] 500 mg PO PRN 07/13/20 Allopurinol [Zyloprim] 100 mg PO TID 07/13/20 Cyznfwuahwd-Oinvvlsnrpoq-Fuxxt [Trelegy Ellipta 100-62.5-25 Mcg/INH] 1 aer IN DAILY 07/13/20 Levothyroxine Sodium 100 mcg PO QAM 07/13/20 Sacubitril-Valsartan [Entresto 49-51 mg] 1 tab PO BID 07/13/20 Spironolactone 25 mg PO BID 07/13/20 Apixaban [Eliquis] 5 mg PO BID #60 tab 07/15/20 Doxycycline Hyclate [Vibramycin] 100 mg PO BID #14 cap 07/15/20 Transfer to Outside Facility - Transfer Information Decision to Transfer Date: 08/08/20 Decision to Transfer Time: 00:07 Reason for Transfer: bed availability Accepting Provider:: dr coronel Accepting Facility: [facility]
[2020-08-08] MEDS ORDERED: cefTRIAXone SODIUM 1 GM in SODIUM CHL 0.9% 50ML MIN-BAG+ 50 ML IVPB ONE (00:18)
[2020-08-08] MEDS ORDERED: AZITHROMYCIN IV 500 MG in SODIUM CHLORIDE 0.9% 250ML 250 ML IVPB ONE (00:18)
[2020-08-08 01:30] VITALS: BP 155/76; TEMP 98.4; O2SAT 95
== END 2020-08-08 01:33 | disposition short-term general hospital (02) ==
LOC: ER 19:15
DX: J44.1 Chronic obstructive pulmonary disease with (acute) exacerbation (principal); R06.03 Acute respiratory distress; I48.91 Unspecified atrial fibrillation; I50.9 Heart failure, unspecified; E07.9 Disorder of thyroid, unspecified; F17.200 Nicotine dependence, unspecified, uncomplicated; Z95.0 Presence of cardiac pacemaker; Z79.899 Other long term (current) drug therapy; Z79.01 Long term (current) use of anticoagulants; Z99.81 Dependence on supplemental oxygen; Z20.828 Contact with and (suspected) exposure to other viral communicable diseases
CPT/HCPCS: 36415; 71045; 80053; 82550; 82553; 82728; 83605; 83615; 83735; 83880; 84484; 85025; 85379; 85384; 85610; 85730; 86140; 87486; 87581; 87633; 87635; 93005; 94640; J0696; J2930; J7050; J7611; J7620

== ENCOUNTER 2020-11-18 12:59 | Emergency (ER) | payer MEDICARE, MEDICAID ==
[2020-11-18] MEDS ORDERED: SODIUM CHLORIDE 0.9% (FLUSH) 10 ML SYG IV PRN (13:09)
--- NOTE | 2020-11-18 13:42 | RAD ---
EXAM DESCRIPTION: Chest,1 View CLINICAL HISTORY: 50 years Male, acute stroke right side weakness COMPARISON: August 07, 2020 TECHNIQUE: AP portable chest. FINDINGS: Single view of the chest shows moderate cardiomegaly the same or actually slightly improved from prior study with central vascular congestion and hazy parenchymal changes in the mid and lower lung field suggesting borderline or mild pulmonary edema. Pleural effusions or dense pulmonary consolidation not apparent. No obvious or large central hilar or mediastinal mass seen. IMPRESSION: Abnormal chest with persistent modest cardiomegaly and central vascular congestion with likely early changes of parahilar edema. Electronically signed by: Ananth Clemons MD 11/18/2020 1:[address] [facility]
--- NOTE | 2020-11-18 13:42 | CT ---
EXAM DESCRIPTION: Head CLINICAL HISTORY: acute stroke, right side weakness COMPARISON: None TECHNIQUE: Noncontrast transaxial CT images of the head are obtained from base to vertex. Images are moderately degraded by patient motion artifact. This exam was performed according to our departmental dose-optimization program, which includes automated exposure control, adjustment of the mA and/or kV according to patient size and/or use of iterative reconstruction technique. FINDINGS: The midline structures are not displaced. The sulci are age appropriate. The lateral, third, and fourth ventricles are normal in size, shape, and anatomic positioning. There is no evidence of mass, mass effect, hydrocephalus, or acute intracranial hemorrhage. No abnormal extra axial fluid collections are seen. Probable perivascular space inferior to the left basal ganglia. Moderate calcifications of the intracranial carotid arteries are seen. Normal boykin-white differentiation is seen. The visualized bone windows show no depressed skull fracture or significant abnormality. The visualized paranasal sinuses and mastoid air cells are clear. IMPRESSION: 1. No acute abnormality is seen on noncontrast CT of the head. 2. CT is insensitive for evaluation of acute cranial ischemia. Consider further evaluation with MRI imaging. Electronically signed by: Brandon Snider MD 11/18/2020 1:40 PM [facility]
[2020-11-18] MEDS ORDERED: ASPIRIN (CHEWABLE) 81 MG TAB PO ONE (13:53)
--- NOTE | 2020-11-18 14:24 | ED.PDOC ---
History of Present Illness - General Chief Complaint: Neuro Symptoms/Deficits Stated Complaint: right sided weakness and numbness Time Seen by Provider: 11/18/20 13:08 Source: patient, RN notes reviewed, EMS Exam Limitations: no limitations - History of Present Illness Initial Comments: The patient is a 50 year old who presents with seizure and right sided numbness/tingling. PMH is significant for morbid obesity, COPD, CHF, pacemaker placement, and atrial fibrillation on eliquis. He states that he is compliant with his medications. The patient states he was feeling well today when he went to run errands. Around 1230pm he was sitting in his chair when he suddenly lost feeling in the right side of his face, arm and leg. He states that the next thing he knew his family was standing over him. They report seizure activity. He has had one seizure previously but does not have diagnosis of epilepsy and he does not take seizure medications. The patient states that he continues to have right sided sensory changes. He denies headache. No tongue biting or bowel/bladder incontinence. No other complaints at this time. Allergies/Adverse Reactions: Allergies Bee Venom Allergy (Verified 11/18/20 13:34) Coconut Oil Allergy (Verified 11/18/20 13:34) Home Medications: Ambulatory Orders Furosemide Tab [Lasix Tab] 40 mg PO BID 07/28/16 Amlodipine Besylate 5 mg PO DAILY 12/11/17 Acetaminophen [Tylenol] 500 mg PO PRN 07/13/20 Allopurinol [Zyloprim] 100 mg PO TID 07/13/20 Dgcfbgmyaet-Xtipyujnhmrr-Mavtp [Trelegy Ellipta 100-62.5-25 Mcg/INH] 1 aer IN DAILY 07/13/20 Levothyroxine Sodium 100 mcg PO QAM 07/13/20 Sacubitril-Valsartan [Entresto 49-51 mg] 1 tab PO BID 07/13/20 Spironolactone 25 mg PO BID 07/13/20 Apixaban [Eliquis] 5 mg PO BID #60 tab 07/15/20 Doxycycline Hyclate [Vibramycin] 100 mg PO BID #14 cap 07/15/20 Review of Systems - Review of Systems Constitutional: States: weakness - right sided. Denies: chills, fever EENTM: States: no symptoms reported. Denies: blurred vision, double vision Respiratory: Denies: cough, orthopnea, short of breath Cardiology: Denies: chest pain, palpitations, syncope Gastrointestinal/Abdominal: Denies: abdominal pain, diarrhea, nausea, vomiting Genitourinary: States: no symptoms reported Musculoskeletal: States: no symptoms reported Skin: States: no symptoms reported Neurological: States: numbness, paresthesia, seizure, weakness Endocrine: States: no symptoms reported Hematologic/Lymphatic: States: no symptoms reported All other Systems: Reviewed and Negative Past Medical History (General) - Patient Medical History Hx Seizures: No Hx Stroke: No Hx Dementia: No Hx Asthma: Yes Hx of COPD: Yes Hx Cardiac Disorders: Yes - A Fib Hx Congestive Heart Failure: Yes Hx Pacemaker: Yes Hx Hypertension: No Hx Thyroid Disease: Yes Hx Diabetes: No Hx Gastroesophageal Reflux: No Hx Renal Disease: No Hx Cancer: No Hx of HIV: No Hx Hepatitis C: No Hx MRSA: No MRSA Source:: Wound - Vaccination History Hx Tetanus, Diphtheria Vaccination: No Hx Influenza Vaccination: No Hx Pneumococcal Vaccination: Yes - Social History Hx Tobacco Use: No Hx Chewing Tobacco Use: No Hx Alcohol Use: No Hx Substance Use: No Hx Substance Use Treatment: No Hx Depression: No Hx Physical Abuse: No Hx Emotional Abuse: No Hx Suspected Abuse: No - Female History Patient : No Family Medical History - Family History Father Living Status: Hx Family Congestive Heart Failure: Yes Mother Family History: No Known Living Status: Hx Cardiac Disease: No Hx Family Cancer: Yes - lungcancer Hx Family;Other: copd Physical Exam - Physical Exam General Appearance: Anxious, Unkempt, Other - Morbidly obese Eye Exam: bilateral normal - Normal ROM, moderate ptosis of R eye appreciated ENT Exam: hearing grossly normal, pharynx normal Neck: non-tender, full range of motion, normal inspection Respiratory: lungs clear, normal breath sounds, no respiratory distress, no accessory muscle use Cardiovascular/Chest: regular rate, rhythm Gastrointestinal/Abdominal: non tender, soft Back Exam: normal inspection, no CVA tenderness, no vertebral tenderness Extremities Exam: non-tender, normal range of motion Mental 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 This patient has multiple contraindications to tPA including anticoagulation on Eliquis, seizure at onset, and low NIH of 4. Discussed this with the patient and he agrees that he would not like this medication as risk outweighs benefits. Neurology agrees with ED to ED transfer, CTA head/neck on arrival to receiving facility. The patient is agreeable to transfer at this time. - Results/Orders Results/Orders: 11/18/20 13:09 Telemetry .ONCE Sodium Chloride 0.9% (Flush) [Saline Flush Syringe] 10 ml IV PRN PRN 11/18/20 13:15 EKG STAT Laboratory Results - last 24 hr 11/18/20 11/18/20 11/18/20 13:43 13:43 13:43 WBC 11.4 H RBC 5.18 Hgb 15.6 Hct 47.9 MCV 92.5 MCH 30.1 MCHC 32.6 L RDW 15.4 H Plt Count 240 MPV 8.2 Absolute Neuts (auto) 8.40 H Absolute Lymphs (auto) 2.10 Absolute Monos (auto) 0.70 Absolute Eos (auto) 0.10 Absolute Basos (auto) 0.10 Neutrophils % 73.5 Lymphocytes % 18.3 L Monocytes % 6.3 Eosinophils % 0.8 L Basophils % 1.1 PT 10.1 INR 1.02 PTT (SP) 30.1 Sodium 139 Potassium 4.4 Chloride 100 L Carbon Dioxide 29 Anion Gap 14.4 BUN 36 H Creatinine 2.07 H BUN/Creatinine Ratio 17.4 POC Glucose Random Glucose 93 Serum Osmolality 285.6 Calcium 8.8 Total Bilirubin 0.4 AST 16 ALT 18 Alkaline Phosphatase 109 Creatine Kinase 122 CK-MB (CK-2) 3.2 CK-MB (CK-2) % Not Reportable Troponin I < 0.02 Serum Total Protein 7.7 Albumin 3.7 Globulin 4.0 H Albumin/Globulin Ratio 0.9 L 11/18/20 13:46 WBC RBC Hgb Hct MCV MCH MCHC RDW Plt Count MPV Absolute Neuts (auto) Absolute Lymphs (auto) Absolute Monos (auto) Absolute Eos (auto) Absolute Basos (auto) Neutrophils % Lymphocytes % Monocytes % Eosinophils % Basophils % PT INR PTT (SP) Sodium Potassium Chloride Carbon Dioxide Anion Gap BUN Creatinine BUN/Creatinine Ratio POC Glucose 90 Random Glucose Serum Osmolality Calcium Total Bilirubin AST ALT Alkaline Phosphatase Creatine Kinase CK-MB (CK-2) CK-MB (CK-2) % Troponin I Serum Total Protein Albumin Globulin Albumin/Globulin Ratio - EKG/XRAY/CT Comments: 1259 Paced Rhythm at rate 61, no STEMI CT Ordered: Yes Stroke Information - Onset of Symptoms Symptoms of Stroke: Numbness Stroke Onset of Symptoms Date: 11/18/20 Stroke Onset of Symptoms Time: 12:30 - Contraindications t-PA Contraindication: Medical Contraindication Departure - Departure Clinical Impression: Stroke Qualifiers: CVA mechanism: unspecified Qualified Code(s): I63.9 - Cerebral infarction, unspecified Time of Disposition: 14:30 Disposition: Transfer to Hospital Condition: Fair Departure Forms: ED Discharge - Pt. Copy, Patient Portal Self Enrollment Referrals: CALI YANCEY [Primary Care Provider] - 1-2 Weeks Home Medications: Ambulatory Orders Furosemide Tab [Lasix Tab] 40 mg PO BID 07/28/16 Amlodipine Besylate 5 mg PO DAILY 12/11/17 Acetaminophen [Tylenol] 500 mg PO PRN 07/13/20 Allopurinol [Zyloprim] 100 mg PO TID 07/13/20 Engwlotzywp-Wprdykpqzwds-Mjltm [Trelegy Ellipta 100-62.5-25 Mcg/INH] 1 aer IN DAILY 07/13/20 Levothyroxine Sodium 100 mcg PO QAM 07/13/20 Sacubitril-Valsartan [Entresto 49-51 mg] 1 tab PO BID 07/13/20 Spironolactone 25 mg PO BID 07/13/20 Apixaban [Eliquis] 5 mg PO BID #60 tab 07/15/20 Doxycycline Hyclate [Vibramycin] 100 mg PO BID #14 cap 07/15/20
[2020-11-18 15:19] VITALS: BP 133/72; TEMP 96.2; O2SAT 92
== END 2020-11-18 15:19 | disposition short-term general hospital (02) ==
LOC: ER 12:59
DX: I63.9 Cerebral infarction, unspecified (principal); R29.810 Facial weakness; R47.81 Slurred speech; G81.91 Hemiplegia, unspecified affecting right dominant side; E66.01 Morbid (severe) obesity due to excess calories; R56.9 Unspecified convulsions; I50.9 Heart failure, unspecified; J44.9 Chronic obstructive pulmonary disease, unspecified; I48.91 Unspecified atrial fibrillation; E07.9 Disorder of thyroid, unspecified; Z79.01 Long term (current) use of anticoagulants; Z79.899 Other long term (current) drug therapy; Z95.0 Presence of cardiac pacemaker; Z68.35 Body mass index [BMI] 35.0-35.9, adult